=== PATIENT | male | born 1935 | race Caucasian/White ===

== ENCOUNTER 2017-04-02 12:54 | Emergency (ER) | payer MEDICARE, OTHER ==
[2017-04-02] MEDS ORDERED: Sodium Chloride 0.9% 10 ML Syringe FLUSH PRN (13:50)
[2017-04-02] MEDS ORDERED: Sodium Chloride 0.9% 1,000 ML IV ONE (13:53)
--- NOTE | 2017-04-02 14:30 | CT ---
Head CT Technique: Multiple axial sections through the brain were obtained. Intravenous contrast was not utilized. Comparison: Prior head CT exam of 05/08/13. Findings: Ventricles along with basal cisterns and sulci over the convexities are mildly prominent. Several old lacunar infarcts are noted within the basal ganglia. Minimal diminished density is noted within the periventricular white matter compatible with small vessel ischemic demyelination change. No other abnormal parenchymal densities are seen. No evidence of intracranial hemorrhage. No midline shift or mass effect is seen. Atherosclerotic calcification is seen within the carotid siphon. No acute calvarial abnormality is seen. Impression: 1. Mild senescent change. Nothing acute is appreciated on CT study of the brain. Diagnostic code #2
--- NOTE | 2017-04-02 14:32 | CT ---
CT paranasal sinuses Technique: Multiple axial sections through the paranasal sinuses were obtained. Reconstructed coronal and sagittal images were reviewed. Comparison: No prior CT sinus exam Findings: Mild mucosal thickening is seen within the maxillary and ethmoid sinuses. Mild mucosal thickening is seen within a portion of the right sphenoid sinus. Minimal nodularity is seen within the maxillary sinuses possibly due to small superimposed retention cysts. No air-fluid levels are seen. Mild joint space narrowing is noted within the temporomandibular joint on the right side. Previous sinus surgery is noted. Impression: 1. Mild areas of mucosal thickening within the maxillary, ethmoid and right-sided sphenoid sinus. Possible minimal superimposed retention cysts within the maxillary sinuses. No air-fluid levels are seen. 2. Previous sinus surgery. 3. Joint space narrowing noted within the right temporomandibular joint. Diagnostic code #3
--- NOTE | 2017-04-02 14:42 | CR ---
Chest: Portable view of the chest was obtained. Comparison: Prior chest x-ray 05/08/13. Slight thickening along the right minor fissure is seen. Lung markings are mildly increased which are believed to be chronic. No acute appearing infiltrates are seen. Heart size at the upper limits of normal. Tortuous thoracic aorta is seen. Bony structures are grossly intact. Stable nodule compatible with granuloma is seen within the left upper chest. Impression: 1. Chronic findings as noted above. Nothing acute is appreciated. Diagnostic code #2
[2017-04-02] MEDS ORDERED: Iopamidol 755 Mg/ML 100 ML Bottle IVPUSH ONE (15:04)
[2017-04-02] MEDS ORDERED: Diatrizoate Meglumine/Diatrizoate Sodium 37% 120 ML Bottle PO ONE (15:04)
[2017-04-02] MEDS ORDERED: Sodium Chloride 0.9% 10 ML Syringe FLUSH ONE (15:04)
[2017-04-02] MEDS ORDERED: Sodium Chloride 0.9% 100 ML IV SCH (15:15)
--- NOTE | 2017-04-02 15:33 | EDM.PDOC ---
ED HPI GENERAL MEDICAL PROBLEM - General Chief Complaint: Headache Stated Complaint: HEADACHE,LEFT SIDE PAIN Time Seen by Provider: 04/02/17 13:40 Source of Information: Reports: Patient History Limitations: Reports: No Limitations - History of Present Illness INITIAL COMMENTS - FREE TEXT/NARRATIVE: 81-year-old male presents for evaluation treatment of a headache and sinus pressure. Patient reports that he was diagnosed with a sinus infection on March 08. He states this all started with pain to his nasal bridge, headache and stuffy nose. He states that he was seen on March 16 at the [facility]. Instructed to take Tylenol. He states he did this for 3 days if symptoms worsen. He is then seen by the [facility] on the . He started on Augmentin and steroids. He reports they finish his course of Augmentin. He did not have any improvement. Again on the he presented to the [facility] and was started on a second course of Augmentin and given Mucinex. He also noted no improvement. Was seen on March 30 at the [facility]. He started on moxifloxacin. He has not had any imaging or lab studies done since this all started. Currently complaining of a headache and sinus pain. Patient reports early this morning he developed pain on the left lower abdomen. He states he is belching more than normal. He reports associated decreased appetite, nausea and fatigue. He states he had "a little bit of diarrhea ". No vomiting or fevers. Patient is a diabetic. Reports that his blood sugars have been running around the 120s. Headache Pain Score (Numeric/FACES): 10 - Related Data Allergies Allergy/AdvReac Type Severity Reaction Status Date / Time lisinopril Allergy Cannot Verified 04/28/15 20:48 Remember soap Allergy Itching Verified 04/28/15 20:48 Home Meds: Home Meds Aspirin [Halfprin] 81 mg PO DAILY 04/28/15 [History] Clopidogrel [Plavix] 75 mg PO DAILY 04/28/15 [History] Fish Oil/[place]-3 Fatty Acids [Fish Oil 1,000 MG] 1 gm PO DAILY 04/28/15 [History ] Folic Acid 400 mcg PO DAILY 04/28/15 [History] Hydrochlorothiazide 12.5 mg PO DAILY 04/28/15 [History] Instaflex 3 tab PO DAILY 04/28/15 [History] Insulin Aspart [NovoLOG] 8 units SQ TID 04/28/15 [History] Insulin Glarg,Human.Rec.Analog [Lantus] 20 units SQ DAILY 04/28/15 [History] Multivit-Min/FA/Lycopene/Lut [Centrum Silver Tablet] 1 tab PO DAILY 04/28/15 [ History] NIFEdipine [Nifedipine] 30 mg PO DAILY 04/28/15 [History] Nitroglycerin [Nitrostat] 0.4 mg SL ONCALL PRN 04/28/15 [History] metFORMIN [Glucophage] 500 mg PO DAILY 04/28/15 [History] Atenolol [Tenormin] 25 mg PO BID 04/02/17 [History] Losartan [Cozaar] 25 mg PO DAILY 04/02/17 [History] Montelukast [Singulair] 10 mg PO BEDTIME 04/02/17 [History] Moxifloxacin HCl [Avelox] 400 mg PO DAILY 04/02/17 [History] Tamsulosin [Flomax] 0.4 mg PO PCBREAKFAST 04/02/17 [History] Past Medical History HEENT History: Reports: Cataract, Impaired Vision Other HEENT History: cataracts removed Cardiovascular History: Reports: High Cholesterol, Hypertension, [place], Stents Endocrine/Metabolic History: Reports: Diabetes, Type II - Infectious Disease History Infectious Disease History: Reports: None - Past Surgical History HEENT Surgical History: Reports: Cataract Surgery GI Surgical History: Reports: Hernia Repair/Other Social & Family History - Family History Family Medical History: Noncontributory - Tobacco Use Smoking Status *Q: Never Smoker - Caffeine Use Caffeine Use: Reports: Coffee - Recreational Drug Use Recreational Drug Use: No ED ROS GENERAL - Review of Systems Review Of Systems: See Below Constitutional: Reports: Decreased Appetite. Denies: Fever HEENT: Reports: Sinus Problem. Denies: Ear Pain Respiratory: Denies: Shortness of Breath Cardiovascular: Denies: Chest Pain GI/Abdominal: Reports: Abdominal Pain (LLQ), Diarrhea ("little bit"), Nausea. Denies: Vomiting : Reports: Flank Pain (left). Denies: Dysuria Neurological: Reports: Headache - Physical Exam Exam: See Below Exam Limited By: No Limitations General Appearance: Alert, WD/WN, No Apparent Distress, Obese Eye Exam: Bilateral Eye: Normal Inspection Ears: Normal External Exam, Normal Canal, Normal TMs, Hearing Loss Nose: Normal Inspection, Nasal Tenderness Throat/Mouth: Normal Inspection, Normal Lips, Normal Oropharynx, Normal Voice, No Airway Compromise Respiratory/Chest: No Respiratory Distress, Lungs Clear, Normal Breath Sounds Cardiovascular: Normal Peripheral Pulses, Regular Rate, Rhythm, No Murmur GI/Abdominal: Normal Bowel Sounds, Soft, Tender (LLQ and left flank) Neuro Exam (Abbreviated): Alert, Oriented, Normal Cognition Psychiatric: Normal Affect, Normal Mood Skin Exam: Warm, Dry, Normal Color EKG INTERPRETATION EKG Date: 04/02/17 Time: 14:10 Rhythm: NSR Rate (Beats/Min): 63 [place]: Normal P-Wave: Present QRS: Normal ST-T: Normal QT: Normal EKG Interpretation Comments: NSR at 63 bpm. QT mildly prolonged. No acute changes. Reviewed by myself and Dr. Guerra Course - Vital Signs Last Recorded V/S: Last Vital Signs Temp 36.9 C 04/02/17 16:56 Pulse 89 04/02/17 16:56 Resp 14 04/02/17 16:56 BP 130/58 L 04/02/17 16:56 Pulse Ox 98 04/02/17 16:56 - Orders/Labs/Meds Labs: Laboratory Tests 04/02/17 04/02/17 04/02/17 Range/Units 13:54 13:54 13:54 WBC 13.85 H (4.23-9.07) K/mm3 RBC 4.48 L (4.63-6.08) M/mm3 Hgb 12.3 L (13.7-17.5) gm/L Hct 36.8 L (40.1-51.0) % MCV 82.1 (79.0-92.2) fl MCH 27.5 (25.7-32.2) pg MCHC 33.4 (32.2-35.5) g/dl RDW Std Deviation 41.9 (35.1-43.9) fL Plt Count 227 (163-337) K/mm3 MPV 9.1 L (9.4-12.3) fl Neutrophils % (Manual) 85 H (40-60) % Band Neutrophils % 0 (0-10) % Lymphocytes % (Manual) 8 L (20-40) % Atypical Lymphs % 0 % Monocytes % (Manual) 5 (2-10) % Eosinophils % (Manual) 1 (0.8-7.0) % Basophils % (Manual) 1 (0.2-1.2) Platelet Estimate Adequate RBC Morph Comment Normal Sodium 142 (136-145) mEq/L Potassium 3.7 (3.5-5.1) mEq/L Chloride 105 (98-107) mEq/L Carbon Dioxide 26 (21-32) mEq/L Anion Gap 14.7 (5-15) BUN 28 H (7-18) mg/dL Creatinine 1.4 H (0.7-1.3) mg/dL Est Cr Clr Drug Dosing 38.03 mL/min Estimated GFR (MDRD) 49 (>60) mL/min BUN/Creatinine Ratio 20.0 H (14-18) Glucose 117 H (83-115) mg/dL Lactic Acid (0.4-2.0) mmol/L Calcium 8.5 (8.5-10.1) mg/dL Total Bilirubin 0.6 (0.2-1.0) mg/dL GGT (15-85) U/L AST 43 H (15-37) U/L ALT 75 H (16-63) U/L Alkaline Phosphatase 433 H (46-116) U/L C-Reactive Protein 19.3 H* (<1.0) mg/dL NT-Pro-B Natriuret Pep 1741 H (0-450) pg/mL Total Protein 6.6 (6.4-8.2) g/dl Albumin 2.0 L (3.4-5.0) g/dl Globulin 4.6 gm/dL Albumin/Globulin Ratio 0.4 L (1-2) Lipase 83 (73-393) U/L Urine Color (Yellow) Urine Appearance (Clear) Urine pH (5.0-8.0) Ur Specific [place] (1.005-1.030) Urine Protein (Negative) Urine Glucose (UA) (Negative) Urine Ketones (Negative) Urine Occult Blood (Negative) Urine Nitrite (Negative) Urine Bilirubin (Negative) Urine Urobilinogen (0.2-1.0) Ur Leukocyte Esterase (Negative) Urine RBC (0-5) /hpf Urine WBC (0-5) /hpf Ur Epithelial Cells (0-5) /hpf Urine Bacteria (FEW) /hpf Urine Mucus (FEW) /hpf C.difficile [id number]-[id number] C. difficile Tox (PCR) 04/02/17 04/02/17 04/02/17 Range/Units 14:27 15:31 15:37 WBC (4.23-9.07) K/mm3 RBC (4.63-6.08) M/mm3 Hgb (13.7-17.5) gm/L Hct (40.1-51.0) % MCV (79.0-92.2) fl MCH (25.7-32.2) pg MCHC (32.2-35.5) g/dl RDW Std Deviation (35.1-43.9) fL Plt Count (163-337) K/mm3 MPV (9.4-12.3) fl Neutrophils % (Manual) (40-60) % Band Neutrophils % (0-10) % Lymphocytes % (Manual) (20-40) % Atypical Lymphs % % Monocytes % (Manual) (2-10) % Eosinophils % (Manual) (0.8-7.0) % Basophils % (Manual) (0.2-1.2) Platelet Estimate RBC Morph Comment Sodium (136-145) mEq/L Potassium (3.5-5.1) mEq/L Chloride (98-107) mEq/L Carbon Dioxide (21-32) mEq/L Anion Gap (5-15) BUN (7-18) mg/dL Creatinine (0.7-1.3) mg/dL Est Cr Clr Drug Dosing mL/min Estimated GFR (MDRD) (>60) mL/min BUN/Creatinine Ratio (14-18) Glucose (83-115) mg/dL Lactic Acid 1.1 (0.4-2.0) mmol/L Calcium (8.5-10.1) mg/dL Total Bilirubin (0.2-1.0) mg/dL GGT (15-85) U/L AST (15-37) U/L ALT (16-63) U/L Alkaline Phosphatase (46-116) U/L C-Reactive Protein (<1.0) mg/dL NT-Pro-B Natriuret Pep (0-450) pg/mL Total Protein (6.4-8.2) g/dl Albumin (3.4-5.0) g/dl Globulin gm/dL Albumin/Globulin Ratio (1-2) Lipase (73-393) U/L Urine Color Yellow (Yellow) Urine Appearance Clear (Clear) Urine pH 6.0 (5.0-8.0) Ur Specific [place] 1.020 (1.005-1.030) Urine Protein Negative (Negative) Urine Glucose (UA) Negative (Negative) Urine Ketones Negative (Negative) Urine Occult Blood Negative (Negative) Urine Nitrite Negative (Negative) Urine Bilirubin Negative (Negative) Urine Urobilinogen 4.0 H (0.2-1.0) Ur Leukocyte Esterase Negative (Negative) Urine RBC 0-5 (0-5) /hpf Urine WBC 0-5 (0-5) /hpf Ur Epithelial Cells 0-5 (0-5) /hpf Urine Bacteria Occasional (FEW) /hpf Urine Mucus Not seen (FEW) /hpf C.difficile [id number]-NAP1-B1 Presumptive negative C. difficile Tox (PCR) Negative 04/02/17 Range/Units 15:37 WBC (4.23-9.07) K/mm3 RBC (4.63-6.08) M/mm3 Hgb (13.7-17.5) gm/L Hct (40.1-51.0) % MCV (79.0-92.2) fl MCH (25.7-32.2) pg MCHC (32.2-35.5) g/dl RDW Std Deviation (35.1-43.9) fL Plt Count (163-337) K/mm3 MPV (9.4-12.3) fl Neutrophils % (Manual) (40-60) % Band Neutrophils % (0-10) % Lymphocytes % (Manual) (20-40) % Atypical Lymphs % % Monocytes % (Manual) (2-10) % Eosinophils % (Manual) (0.8-7.0) % Basophils % (Manual) (0.2-1.2) Platelet Estimate RBC Morph Comment Sodium (136-145) mEq/L Potassium (3.5-5.1) mEq/L Chloride (98-107) mEq/L Carbon Dioxide (21-32) mEq/L Anion Gap (5-15) BUN (7-18) mg/dL Creatinine (0.7-1.3) mg/dL Est Cr Clr Drug Dosing mL/min Estimated GFR (MDRD) (>60) mL/min BUN/Creatinine Ratio (14-18) Glucose (83-115) mg/dL Lactic Acid (0.4-2.0) mmol/L Calcium (8.5-10.1) mg/dL Total Bilirubin (0.2-1.0) mg/dL GGT 318 H (15-85) U/L AST (15-37) U/L ALT (16-63) U/L Alkaline Phosphatase (46-116) U/L C-Reactive Protein (<1.0) mg/dL NT-Pro-B Natriuret Pep (0-450) pg/mL Total Protein (6.4-8.2) g/dl Albumin (3.4-5.0) g/dl Globulin gm/dL Albumin/Globulin Ratio (1-2) Lipase (73-393) U/L Urine Color (Yellow) Urine Appearance (Clear) Urine pH (5.0-8.0) Ur Specific [place] (1.005-1.030) Urine Protein (Negative) Urine Glucose (UA) (Negative) Urine Ketones (Negative) Urine Occult Blood (Negative) Urine Nitrite (Negative) Urine Bilirubin (Negative) Urine Urobilinogen (0.2-1.0) Ur Leukocyte Esterase (Negative) Urine RBC (0-5) /hpf Urine WBC (0-5) /hpf Ur Epithelial Cells (0-5) /hpf Urine Bacteria (FEW) /hpf Urine Mucus (FEW) /hpf C.difficile 027-NAP1-B1 C. difficile Tox (PCR) Meds: Medications Discontinued Medications Generic Name Dose Route Start Last Admin Trade Name Freq PRN Reason Stop Dose Admin Diatrizoate Meglum/Diatrizoate Sod 90 ml 04/02/17 15:04 04/02/17 15:17 Gastrografin 37% PO 04/02/17 15:05 90 ml ONETIME ONE Administration Sodium Chloride 1,000 mls @ 100 mls/hr 04/02/17 13:53 04/02/17 14:14 Normal Saline IV 04/02/17 23:52 100 mls/hr ONETIME ONE Administration Sodium Chloride 100 mls @ 60 mls/hr 04/02/17 15:15 04/02/17 15:18 Normal Saline IV 60 mls/hr ASDIRECTED DARIUSZ Administration Iopamidol 100 ml 04/02/17 15:04 04/02/17 15:17 Isovue-370 (76%) IVPUSH 04/02/17 15:05 100 ml ONETIME ONE Administration Sodium Chloride 10 ml 04/02/17 13:50 04/02/17 14:15 Saline Flush FLUSH 10 ml ASDIRECTED PRN Administration Keep Vein Open Sodium Chloride 10 ml 04/02/17 15:04 04/02/17 15:18 Saline Flush FLUSH 04/02/17 15:05 10 ml ONETIME ONE Administration - Radiology Interpretation Free Text/Narrative:: Head CT Technique: Multiple axial sections through the brain were obtained. Intravenous contrast was not utilized. Comparison: Prior head CT exam of 05/08/13. Findings: Ventricles along with basal cisterns and sulci over the convexities are mildly prominent. Several old lacunar infarcts are noted within the basal ganglia. Minimal diminished density is noted within the periventricular white matter compatible with small vessel ischemic demyelination change. No other abnormal parenchymal densities are seen. No evidence of intracranial hemorrhage. No midline shift or mass effect is seen. Atherosclerotic calcification is seen within the carotid siphon. No acute calvarial abnormality is seen. Impression: 1. Mild senescent change. Nothing acute is appreciated on CT study of the brain. CT paranasal sinuses Technique: Multiple axial sections through the paranasal sinuses were obtained. Reconstructed coronal and sagittal images were reviewed. Comparison: No prior CT sinus exam Findings: Mild mucosal thickening is seen within the maxillary and ethmoid sinuses. Mild mucosal thickening is seen within a portion of the right sphenoid sinus. Minimal nodularity is seen within the maxillary sinuses possibly due to small superimposed retention cysts. No air-fluid levels are seen. Mild joint space narrowing is noted within the temporomandibular joint on the right side. Previous sinus surgery is noted. Impression: 1. Mild areas of mucosal thickening within the maxillary, ethmoid and right- sided sphenoid sinus. Possible minimal superimposed retention cysts within the maxillary sinuses. No air-fluid levels are seen. 2. Previous sinus surgery. 3. Joint space narrowing noted within the right temporomandibular joint. Chest: Portable view of the chest was obtained. Comparison: Prior chest x-ray 05/08/13. Slight thickening along the right minor fissure is seen. Lung markings are mildly increased which are believed to be chronic. No acute appearing infiltrates are seen. Heart size at the upper limits of normal. Tortuous thoracic aorta is seen. Bony structures are grossly intact. Stable nodule compatible with granuloma is seen within the left upper chest. Impression: 1. Chronic findings as noted above. Nothing acute is appreciated. CT abdomen and pelvis Technique: Multiple axial sections were obtained from above the dome of the diaphragm inferiorly through the pubic symphysis. Intravenous and oral contrast was utilized. Delayed images were obtained through the bladder. Comparison: Prior CT exam of 10/22/08 is available. Findings: Minimal pleural effusions are seen on both sides with mild compressive type atelectasis. Heart is mildly enlarged. Liver shows no focal parenchymal abnormality. Spleen appears appears mildly prominent in size at 14.6 cm which is fairly stable from prior exam. Liver shows a minimal low density lesion within the lower portion which is stable from previous exam and therefore is felt to be incidental. Cyst is noted off the right kidney measuring 2.6 cm. Extrarenal pelvis noted on both sides. No ureteral dilatation is seen. Delayed images shows contrast within the distal ureters and within the bladder. Adrenal glands show no nodule. Gallbladder shows no calcified gallstones. Pancreas appears within normal limits. Aorta shows diffuse atherosclerotic change which continues into the iliac vessels without aneurysmal dilatation. No retroperitoneal adenopathy or mesenteric abnormalities are seen. Diverticuli are seen within the sigmoid colon without findings of diverticulitis. No free fluid or inflammatory change is seen. Prostate gland is mildly enlarged. Appendix is seen which appears within normal limits. Bone window settings were reviewed which appear within normal limits for the patient's age. Impression: 1. Small bilateral pleural effusions with minimal compressive atelectasis. 2. Other incidental findings as noted above. Nothing acute is appreciated on CT study of the abdomen and pelvis. - Re-Assessments/Exams Free Text/Narrative Re-Assessment/Exam: 04/02/17 16:38 Patient was offered pain medication throughout his ER stay but declined. Case discussed with Dr. Fermin. Recommended ENT for chronic sinusitis. [place] elevated liver enzymes were likely from antibiotics or possibly undiagnosed malignancy. Recommended follow-up with PCP for further work-up. I was able to obtain recent labs from [place] (end of January labs). Liver enzymes were within normal limits at that time. WBC slightly elevated about normal at 10. I discussed the labs, ekg and imaging with the patient and his . I will have him follow-up with ENT. He should also follow-up with his PCP. HE is instructed to return to the ER immediately if his symptoms change or worsen. Discharge instructions as documented. Departure - Departure Time of Disposition: 16:40 Disposition: Home, Self-Care 01 Condition: Fair Clinical Impression: Sinusitis, Constipation, Transaminitis - Discharge Information Instructions: Constipation, Adult, [id number], Sinusitis, Adult, [id number] Referrals: Benji Perrin MD [Primary Care Provider] - Rian Cruz MD [Ordering Only Provider] - Forms: ED Department Discharge Additional Instructions: Continue on your antibiotic. [id number] Tylenol as needed for pain relief. Recommended starting MiraLAX daily. Recommend starting a probiotic with your antibiotic. Take this daily. These are available [id number]. Follow up with ear, nose and throat. Recommend Dr. Cruz. Call [phone] to schedule with him. Follow-up with Dr. Valdez within 1 week for recheck of your symptoms. Please return to the ER if your symptoms change or worsen. Particularly we would like to see you for fevers, chills, nausea, vomiting or any other concerning symptom.
--- NOTE | 2017-04-02 15:50 | CT ---
CT abdomen and pelvis Technique: Multiple axial sections were obtained from above the dome of the diaphragm inferiorly through the pubic symphysis. Intravenous and oral contrast was utilized. Delayed images were obtained through the bladder. Comparison: Prior CT exam of 10/22/08 is available. Findings: Minimal pleural effusions are seen on both sides with mild compressive type atelectasis. Heart is mildly enlarged. Liver shows no focal parenchymal abnormality. Spleen appears appears mildly prominent in size at 14.6 cm which is fairly stable from prior exam. Liver shows a minimal low density lesion within the lower portion which is stable from previous exam and therefore is felt to be incidental. Cyst is noted off the right kidney measuring 2.6 cm. Extrarenal pelvis noted on both sides. No ureteral dilatation is seen. Delayed images shows contrast within the distal ureters and within the bladder. Adrenal glands show no nodule. Gallbladder shows no calcified gallstones. Pancreas appears within normal limits. Aorta shows diffuse atherosclerotic change which continues into the iliac vessels without aneurysmal dilatation. No retroperitoneal adenopathy or mesenteric abnormalities are seen. Diverticuli are seen within the sigmoid colon without findings of diverticulitis. No free fluid or inflammatory change is seen. Prostate gland is mildly enlarged. Appendix is seen which appears within normal limits. Bone window settings were reviewed which appear within normal limits for the patient's age. Impression: 1. Small bilateral pleural effusions with minimal compressive atelectasis. 2. Other incidental findings as noted above. Nothing acute is appreciated on CT study of the abdomen and pelvis. Diagnostic code #3
[2017-04-02 17:02] VITALS: BP 130/58
== END 2017-04-02 16:52 | disposition home or self-care (01) ==
LOC: EDBD → JD.ED 12:54
DX: J32.9 Chronic sinusitis, unspecified (principal); K59.00 Constipation, unspecified; I10 Essential (primary) hypertension; R74.0 Nonspecific elevation of levels of transaminase and lactic acid dehydrogenase [LDH]; Z88.8 Allergy status to other drugs, medicaments and biological substances
CPT/HCPCS: 36415; 70450; 70486; 71010; 74177; 80053; 81001; 82977; 83605; 83690; 83880; 85025; 86140; 87040; 87493; 93005; 96360; 96361; 99285; J7030; J7040; J7050; Q9967; 93010; 99284

== ENCOUNTER 2017-05-04 09:55 | Day surgery (SDC) | payer MEDICARE, OTHER ==
[~2017-05-04 09:55] MED LIST: Lactated Ringers 1,000 ML IV SCH; Lidocaine 1%/Sod Bicarbonate in NS 8.4% 1 ML Syringe IV PRN; Sodium Chloride 0.9% 10 ML Syringe FLUSH PRN
[2017-05-04] MEDS ORDERED: Bupivacaine 0.5%/EPINEPHrine 1:200,000 50 ML MDV ONE (10:13)
[2017-05-04] MEDS ORDERED: Lidocaine 1% with EPINEPHrine 1:100,000 20 ML MDV ONE (10:13)
[2017-05-04] MEDS ORDERED: Midazolam 1 MG/ML 2 ML SDV ONE (10:34)
[2017-05-04] MEDS ORDERED: fentaNYL 100 MCG/2 ML SDV ONE (10:34)
[2017-05-04] MEDS ORDERED: Propofol 200 MG/20 ML SDV ONE (10:34)
[2017-05-04] MEDS ORDERED: Ketamine 500 mg/10 ML MDV ONE (10:34)
[2017-05-04] MEDS ORDERED: Lidocaine 1% 4 ML ONE (10:35)
--- NOTE | 2017-05-04 10:53 | PCM.PREANE ---
Preanesthetic Assessment - Anesthesia/Transfusion/Family Hx Anesthesia History: Prior Anesthesia Without Reaction Family History of Anesthesia Reaction: No Transfusion History: No Prior Transfusion(s) - Review of Systems General: Weakness, Fatigue, Malaise, Appetite (Decreased appetite, 30 lb weight loss over the last month. ) Pulmonary: No Symptoms Cardiovascular: No Symptoms, Other (Is not very active due to his terrible headaches, denies chest pain since his last cardiac stent in 2005.) Gastrointestinal: Decreased Appetite Neurological: Confusion (His states he is confused in the monings and then improves throughout the day. ), Headache (Constant headache), Difficulty Walking (Uses a cane to ambulate) Other: Reports: Easy Bruising, Diabetes - Physical Assessment NPO Status Date: 05/04/17 NPO Status Time: 08:00 (Sip of water with his medications) Pulse: 66 O2 Sat by Pulse Oximetry: 95 Respiratory Rate: 17 Blood Pressure: 140/59 Temperature: 36.0 C Weight: 84 kg ASA Class: 3 Mental Status: Alert & Oriented x3 Airway Class: Mallampati = 1 Dentition: Reports: Dentures Thyro-Mental Finger Breadths: 3 Mouth Opening Finger Breadths: 3 ROM/Head Extension: Full Lungs: Clear to Auscultation, Normal Respiratory Effort Cardiovascular: Regular Rate, Regular Rhythm - Lab Values: Reviewed - Imaging/EKG Impressions: Reviewed. Patient has cardiac stents. Last stent was in 2005 no episodes of chest pain since that time. - Allergies Allergies/Adverse Reactions: Allergies Allergy/AdvReac Type Severity Reaction Status Date / Time lisinopril Allergy Cannot Verified 05/04/17 10:55 Remember soap Allergy Itching Verified 05/04/17 10:55 - Anesthesia Plan Beta Jonas: Atenolol Med Last Dose Date: 05/03/17 Med Last Dose Time: 17:30 - Acknowledgements Anesthesia Type Planned: MAC Pt an Appropriate Candidate for the Planned Anesthesia: Yes Alternatives and Risks of Anesthesia Discussed w Pt/Guardian: Yes Pt/Guardian Understands and Agrees with Anesthesia Plan: Yes Additional Comments: Rheumatology consult for Sunday. Patient and his are very concerned with his declining health. He appears very lethargic in bed, very hard of hearing, they both have no further questions at this time. Patient is taking his plavix daily, Dr. Suárez is aware and wishes to proceed. PreAnesthesia Questionnaire HEENT History: Reports: Cataract, Impaired Vision Other HEENT History: cataracts removed Cardiovascular History: Reports: High Cholesterol, Hypertension, [place], Stents Endocrine/Metabolic History: Reports: Diabetes, Type II - Infectious Disease History Infectious Disease History: Reports: None - Past Surgical History HEENT Surgical History: Reports: Cataract Surgery GI Surgical History: Reports: Hernia Repair/Other - SUBSTANCE USE Smoking Status *Q: Never Smoker Recreational Drug Use History: No - HOME MEDS Home Medications: Home Meds Aspirin [Halfprin] 81 mg PO DAILY 04/28/15 [History] Clopidogrel [Plavix] 75 mg PO DAILY 04/28/15 [History] Fish Oil/[place]-3 Fatty Acids [Fish Oil 1,000 MG] 1 gm PO DAILY 04/28/15 [History ] Folic Acid 400 mcg PO DAILY 04/28/15 [History] Hydrochlorothiazide 12.5 mg PO DAILY 04/28/15 [History] Instaflex 3 tab PO DAILY 04/28/15 [History] Insulin Aspart [NovoLOG] 8 units SQ TID 04/28/15 [History] Insulin Glarg,Human.Rec.Analog [Lantus] 20 units SQ DAILY 04/28/15 [History] Multivit-Min/FA/Lycopene/Lut [Centrum Silver Tablet] 1 tab PO DAILY 04/28/15 [ History] NIFEdipine [Nifedipine] 30 mg PO DAILY 04/28/15 [History] Nitroglycerin [Nitrostat] 0.4 mg SL ONCALL PRN 04/28/15 [History] metFORMIN [Glucophage] 500 mg PO DAILY 04/28/15 [History] Atenolol [Tenormin] 25 mg PO BID 04/02/17 [History] Losartan [Cozaar] 25 mg PO DAILY 04/02/17 [History] Montelukast [Singulair] 10 mg PO BEDTIME 04/02/17 [History] Tamsulosin [Flomax] 0.4 mg PO PCBREAKFAST 04/02/17 [History] - CURRENT (IN HOUSE) MEDS Current Meds: Current Medications Lactated Ringer's (Ringers, Lactated) 1,000 mls @ 125 mls/hr IV ASDIRECTED DARIUSZ Lidocaine/Sodium Bicarbonate (Buffered Lidocaine 1% In Ns 8.4%) 0.25 ml IV ONETIME PRN PRN Reason: Prior to IV Start Sodium Chloride (Saline Flush) 10 ml FLUSH ASDIRECTED PRN PRN Reason: Keep Vein Open Discontinued Medications Bupivacaine HCl/Epinephrine Bitart (Marcaine 0.5%/Epinephrine 1:200,000) Confirm Administered Dose 50 ml .ROUTE .STK-MED ONE Stop: 05/04/17 10:14 Fentanyl (Sublimaze) Confirm Administered Dose 100 mcg .ROUTE .STK-MED ONE Stop: 05/04/17 10:35 Lidocaine HCl (Xylocaine-Mpf 1%) Confirm Administered Dose 4 mls @ as directed .ROUTE .STK-MED ONE Stop: 05/04/17 10:36 Ketamine HCl (Ketalar) Confirm Administered Dose 500 mg .ROUTE .STK-MED ONE Stop: 05/04/17 10:35 Lidocaine/Epinephrine (Xylocaine 1% With Epinephrine 1:100,000) Confirm Administered Dose 20 ml .ROUTE .STK-MED ONE Stop: 05/04/17 10:14 Midazolam HCl (Versed 1 Mg/Ml) Confirm Administered Dose 2 mg .ROUTE .STK-MED ONE Stop: 05/04/17 10:35 Propofol (Diprivan 20 Ml) Confirm Administered Dose 400 mg .ROUTE .STK-MED ONE Stop: 05/04/17 10:35
[2017-05-04] MEDS ORDERED: Lidocaine 1% 50 ML MDV ONE (12:59)
[2017-05-04] MEDS ORDERED: Mupirocin Oint 22 GM Tube ONE (13:27)
--- NOTE | 2017-05-04 13:49 | PCM.OPNOTE ---
- General Post-Op/Procedure Note Date of Surgery/Procedure: 05/04/17 Operative Procedure(s): rt temporal artery bx Pre Op Diagnosis: giant cell arteritis Post-Op Diagnosis: Same Anesthesia Technique: MAC Primary Surgeon: Brett Suárez EBL in mLs: 2 Complications: None Condition: Good
--- NOTE | 2017-05-04 13:55 | PCM48HPAN ---
Post Anesthesia Note - EVALUATION WITHIN 48HRS OF ANESTHETIC Vital Signs in Normal Range: Yes Patient Participated in Evaluation: Yes Respiratory Function Stable: Yes Airway Patent: Yes Cardiovascular Function Stable: Yes Hydration Status Stable: Yes Pain Control Satisfactory: Yes Nausea and Vomiting Control Satisfactory: Yes Mental Status Recovered: Yes
[2017-05-04 14:46] VITALS: BP 117/59
--- NOTE | 2017-05-07 07:47 | OR ---
wDATE OF OPERATION: 05/04/2017 SURGEON: Brett Suárez MD PREOPERATIVE DIAGNOSIS: Giant-cell arteritis. POSTOPERATIVE DIAGNOSIS: Giant-cell arteritis. OPERATION PERFORMED: Right temporal artery biopsy. ANESTHESIA: The procedure was done under IV sedation, 1% Xylocaine. DESCRIPTION OF PROCEDURE: The patient was taken to the operating room, placed in the supine position, connected to monitoring equipment, and given IV sedation. The sideburns were then clipped and prepped with DuraPrep, draped off in a sterile fashion. Xylocaine 1% was infiltrated in the skin over the temporal area. An incision was made in vertical fashion, carried down to the temporal artery, which was identified with the help of a Doppler. This was then mobilized, proximal and distal end of the segment of artery was clamped, and then segment of the artery was removed and these were tied with 3-0 Vicryl suture. Bleeding points were controlled with clamping and suture ligature of 3-0 Vicryl suture. Once excellent hemostasis was obtained, the subcuticular tissue was closed with interrupted 3-0 Vicryl suture and the skin with subdermal 4-0 Dexon suture. Steri-Strips and sterile dressing placed. The patient tolerated the procedure. Specimen sent to pathology in a labeled container. Estimated blood loss about 1 to 2 mL. The patient will be followed up in the clinic. ESTIMATED BLOOD LOSS: MMODAL /[id number]
== END 2017-05-04 14:50 | disposition home or self-care (01) ==
LOC: JD.SDS 09:55 → EDBD 09:55 → JD.SDS 14:50
PROVIDERS: ATTEND Surgery
DX: M31.6 Other giant cell arteritis (principal); I25.10 Atherosclerotic heart disease of native coronary artery without angina pectoris; E11.9 Type 2 diabetes mellitus without complications; I10 Essential (primary) hypertension; E78.5 Hyperlipidemia, unspecified; E66.9 Obesity, unspecified; E78.1 Pure hyperglyceridemia; Z95.5 Presence of coronary angioplasty implant and graft; Z79.84 Long term (current) use of oral hypoglycemic drugs; Z79.82 Long term (current) use of aspirin; Z79.899 Other long term (current) drug therapy; Z68.29 Body mass index [BMI] 29.0-29.9, adult
CPT/HCPCS: 37609; 82962; A9270; J3010; J7120; 00352; 88305; J2001; J2250; J2704

== ENCOUNTER 2018-07-22 07:08 | Day surgery (SDC) | payer MEDICARE, OTHER ==
[~2018-07-22 07:08] MED LIST changes: +Lidocaine 1% 4 ML ONE; +Lidocaine 1%/Sod Bicarbonate in NS 8.4% 1 ML Syringe IDERM PRN; -Lidocaine 1%/Sod Bicarbonate in NS 8.4% 1 ML Syringe IV PRN; +Propofol 200 MG/20 ML SDV ONE; +fentaNYL 100 MCG/2 ML SDV ONE
--- NOTE | 2018-07-22 07:50 | PCM.PREANE ---
Preanesthetic Assessment - Anesthesia/Transfusion/Family Hx Anesthesia History: Prior Anesthesia Without Reaction Family History of Anesthesia Reaction: No Transfusion History: No Prior Transfusion(s) - Review of Systems General: Fatigue, Other (3) Pulmonary: Shortness of Breath (gets SOB with flight of stairs), Other (s/p bronchitis with antibx, ) Cardiovascular: Other (plavix stopped at 07/16/18, hx of stents, HTN, high cholesterol) Gastrointestinal: No Symptoms Neurological: Other (back pain) Other: Reports: Diabetes (am glucose 119) - Physical Assessment NPO Status Date: 07/21/18 NPO Status Time: 21:00 Pulse: 67 O2 Sat by Pulse Oximetry: 93 Blood Pressure: 145/57 Weight: 101 kg ASA Class: 3 Mental Status: Alert & Oriented x3 Airway Class: Mallampati = 2 Dentition: Reports: Normal Dentition, Edentulous Thyro-Mental Finger Breadths: 3 Mouth Opening Finger Breadths: 3 ROM/Head Extension: Full Lungs: Clear to Auscultation, Normal Respiratory Effort Cardiovascular: Regular Rate, Regular Rhythm - Allergies Allergies/Adverse Reactions: Allergies Allergy/AdvReac Type Severity Reaction Status Date / Time lisinopril Allergy Cannot Verified 07/19/18 09:29 Remember soap Allergy Sneezing Verified 07/19/18 09:29 - Blood Blood Available: No Product(s) Available: None - Anesthesia Plan Pre-Op Medication Ordered: None Beta Jonas: Metoprolol Med Last Dose Date: 07/20/18 Med Last Dose Time: 18:00 - Acknowledgements Anesthesia Type Planned: MAC Pt an Appropriate Candidate for the Planned Anesthesia: Yes Alternatives and Risks of Anesthesia Discussed w Pt/Guardian: Yes Pt/Guardian Understands and Agrees with Anesthesia Plan: Yes PreAnesthesia Questionnaire HEENT History: Reports: Cataract, Impaired Vision Other HEENT History: Patient has dentures Cardiovascular History: Reports: CAD, High Cholesterol, Hypertension, [place], Stents Other Cardiovascular History: Chest Pain Respiratory History: Reports: Other (See Below) Other Respiratory History: Reactive Airway Disease, Bronchitis Gastrointestinal History: Reports: Hemorrhoids Other Gastrointestinal History: Positive FIT test Other Genitourinary History: Prostate hypertrophy Musculoskeletal History: Reports: Amputation Other Musculoskeletal History: 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, left hip pain, right hand joint cyst Neurological History: Reports: Headaches, Chronic Psychiatric History: Reports: None Endocrine/Metabolic History: Reports: Diabetes, Type II, Obesity/BMI 30+ Other Endocrine/Metabolic History: Fatigue Hematologic History: Reports: Anemia, Folic Acid Immunologic History: Reports: None Oncologic (Cancer) History: Reports: None - Infectious Disease History Infectious Disease History: Reports: None - Past Surgical History HEENT Surgical History: Reports: Cataract Surgery Cardiovascular Surgical History: Reports: Coronary Artery Stent Respiratory Surgical History: Reports: None GI Surgical History: Reports: Colonoscopy, Hernia Repair/Other Male Surgical History: Reports: None Endocrine Surgical History: Reports: None Neurological Surgical History: Reports: None Musculoskeletal Surgical History: Reports: None Oncologic Surgical History: Reports: None Dermatological Surgical History: Reports: Other (See Below) - SUBSTANCE USE Smoking Status *Q: Former Smoker Tobacco Use Within Last Twelve Months: Snuff/Dip Second Hand Smoke Exposure: No Recreational Drug Use History: No - HOME MEDS Home Medications: Home Meds Aspirin [Halfprin] 162 mg PO DAILY 04/28/15 [History] Clopidogrel [Plavix] 75 mg PO DAILY 04/28/15 [History] Fish Oil/[place]-3 Fatty Acids [Fish Oil 1,000 MG] 1,000 mg PO DAILY 04/28/15 [ History] Folic Acid 400 mcg PO DAILY 04/28/15 [History] Hydrochlorothiazide 12.5 mg PO DAILY 04/28/15 [History] Insulin Aspart [NovoLOG] 8 units SQ BID 04/28/15 [History] Insulin Glarg,Human.Rec.Analog [Lantus] 20 units SQ QAM 04/28/15 [History] Multivit-Min/FA/Lycopene/Lut [Centrum Silver Tablet] 1 tab PO DAILY 04/28/15 [ History] NIFEdipine [Nifedipine] 30 mg PO DAILY 04/28/15 [History] Nitroglycerin [Nitrostat] 0.4 mg SL ASDIRECTED PRN 04/28/15 [History] Atenolol [Tenormin] 25 mg PO QPM 04/02/17 [History] Tamsulosin [Flomax] 0.4 mg PO DAILY 04/02/17 [History] Budesonide/Formoterol [Symbicort 160-4.5 MCG] 1 puff INH BID 07/19/18 [History] Calcium Carbonate/Vitamin D3 [Caltrate-600 with Vit D Tab] 1 tab PO BID [History] Ferrous Sulfate [Iron] 325 mg PO BID 07/19/18 [History] Losartan [Cozaar] 25 mg PO DAILY 07/19/18 [History] Selenium Sulfide/Aloe Vera [[place] Blue Moist 1% Shampoo] 1 applic TP ASDIRECTED PRN 07/19/18 [History] Tocilizumab [Actemra] 162 mg SQ FR 07/19/18 [History] atorvaSTATin Calcium [Atorvastatin Calcium] 40 mg PO BEDTIME 07/19/18 [History] metFORMIN [Glucophage] 500 mg PO BEDTIME 07/19/18 [History] - CURRENT (IN HOUSE) MEDS Current Meds: Current Medications Lactated Ringer's (Ringers, Lactated) 1,000 mls @ 125 mls/hr IV ASDIRECTED DARIUSZ Stop: 07/22/18 23:00 Lidocaine/Sodium Bicarbonate (Buffered Lidocaine 1% In Ns 8.4%) 0.25 ml IDERM ONETIME PRN PRN Reason: Prior to IV Start Stop: 07/22/18 18:00 Sodium Chloride (Saline Flush) 10 ml FLUSH ASDIRECTED PRN PRN Reason: Keep Vein Open Stop: 07/22/18 18:00 Discontinued Medications Fentanyl (Sublimaze) Confirm Administered Dose 100 mcg .ROUTE .STK-MED ONE Stop: 07/22/18 06:23 Lidocaine HCl (Xylocaine-Mpf 1%) Confirm Administered Dose 4 mls @ as directed .ROUTE .STK-MED ONE Stop: 07/22/18 06:23 Propofol (Diprivan 20 Ml) Confirm Administered Dose 200 mg .ROUTE .STK-MED ONE Stop: 07/22/18 06:23
[2018-07-22] MEDS ORDERED: Metoprolol Tartrate 5 MG/5 ML SDV IVPUSH SCH (08:45)
[2018-07-22] MEDS ORDERED: Propofol 200 MG/20 ML SDV ONE (09:35)
[2018-07-22] MEDS ORDERED: Lactated Ringers 1,000 ML ONE (09:59)
--- NOTE | 2018-07-22 10:05 | PCM.OPNOTE ---
- General Post-Op/Procedure Note Date of Surgery/Procedure: 07/22/18 Operative Procedure(s): EGD and colonoscopy with polypectomy X 3 Post-Op Diagnosis: Same Anesthesia Technique: MAC Primary Surgeon: Brett Suárez EBL in mLs: 0 Complications: None Condition: Good
--- NOTE | 2018-07-22 10:06 | PCM48HPAN ---
Post Anesthesia Note - EVALUATION WITHIN 48HRS OF ANESTHETIC Vital Signs in Normal Range: Yes Patient Participated in Evaluation: Yes Respiratory Function Stable: Yes Airway Patent: Yes Cardiovascular Function Stable: Yes Hydration Status Stable: Yes Pain Control Satisfactory: Yes Nausea and Vomiting Control Satisfactory: Yes Mental Status Recovered: Yes Pulse Rate: 64 SaO2: 91 Resp Rate: 20 Temperature: 98.6 F Blood Pressure: 94/52
[2018-07-22 11:00] VITALS: BP 102/65
--- NOTE | 2018-07-23 06:33 | OR ---
DATE OF OPERATION: 07/22/2018 SURGEON: Brett Suárez MD PREOPERATIVE DIAGNOSIS: Positive FIT test, drop in hemoglobin. POSTOPERATIVE DIAGNOSIS: Positive FIT test, drop in hemoglobin. OPERATION PERFORMED: Colonoscopy to cecum with polypectomy x3. FINDINGS: A diminutive polyp in the cecum, at the ileocecal valve, and in the proximal ascending colon. These were each removed completely with cold biopsy forceps. 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 Internal hemorrhoids were noted. There was no large tumor, masses, or ulcerations and only 1 diverticulum was noted that was in the descending colon. ANESTHESIA: Done under IV sedation. DESCRIPTION OF PROCEDURE: The patient having been connected to monitoring equipment and given IV sedation for upper GI endoscopy, this was continued for colonoscopy. The patient was placed in left lateral position. Perianal area was inspected and was normal. Rectal exam showed good sphincter tone. A video Olympus colonoscope was then introduced into the rectum and threaded up without problem to the cecum, where the appendicular orifice was noted. Off to the side of the appendicular orifice snf between the ileocecal valve was a small angiodysplasia. There was no bleeding. A small diminutive polyp was noted just below the appendicular orifice. This was removed by cold biopsy forceps and sent to pathology. Another polyp was noted at the ileocecal valve and this was removed with cold biopsy forceps and sent to pathology. A third diminutive polyp was noted in the ascending colon. This was also removed by cold biopsy forceps and sent to pathology. Prep was excellent. [place] Cleansing Score grade B throughout the colon. The scope was then slowly withdrawn showing the cecum, ascending colon, transverse colon, descending colon, sigmoid colon, and rectum. Retroflexed view demonstrated hemorrhoids. The patient tolerated the procedure, sent to recovery room in stable condition. Specimen sent to pathology in a labeled container. The patient will be followed up in the clinic. ESTIMATED BLOOD LOSS: MMODAL /[id number]
--- NOTE | 2018-07-23 06:33 | OR ---
DATE OF OPERATION: 07/22/2018 SURGEON: Brett Suárez MD PREOPERATIVE DIAGNOSIS: Positive FIT test, drop in hemoglobin. POSTOPERATIVE DIAGNOSIS: Positive FIT test, drop in hemoglobin. OPERATION PERFORMED: Esophagogastroduodenoscopy. FINDINGS: Normal second portion of the duodenum, duodenal bulb, and pyloric channel. Antrum, body, and cardia of the stomach were unremarkable. J-maneuver shows mild incompetence of the hiatus. GE junction located at 40 cm, free of any acute disease. The rest of the esophagus was viewed as the scope withdrawn and unremarkable. ANESTHESIA: Done under IV sedation. Appearance is normal. DESCRIPTION OF PROCEDURE: The patient was taken to the endoscopy room, placed in supine position, connected to monitoring equipment, given IV sedation. A bite block was inserted and the patient placed in the left lateral position. A video Olympus gastroscope was placed in the posterior oropharynx under direct vision, threaded past the cricopharyngeus, down the esophagus, into the stomach. It was advanced through the pylorus to the second portion of the duodenum and it was then slowly withdrawn showing the normal second portion of the duodenum, duodenal bulb, and pyloric channel. Antrum, body, and cardia of the stomach were viewed. J- maneuver was performed showing the fundus in the hiatus, which showed some incompetence. No pathology was seen. The scope was then withdrawn to the GE junction located at 40 cm. It was unremarkable and no acute disease was seen. Rest of the esophagus viewed as the scope withdrawn was normal. The patient tolerated the procedure and there were no biopsies taken. IV sedation will be continued for colonoscopy. ESTIMATED BLOOD LOSS: MMODAL /[id number]
== END 2018-07-22 10:58 | disposition home or self-care (01) ==
LOC: JD.SDS 07:08 → EDBD 08:00 → JD.SDS 10:58
PROVIDERS: ATTEND Surgery
DX: D50.9 Iron deficiency anemia, unspecified (principal); R19.5 Other fecal abnormalities; D12.0 Benign neoplasm of cecum; D12.2 Benign neoplasm of ascending colon; K64.8 Other hemorrhoids; K55.20 Angiodysplasia of colon without hemorrhage; K57.30 Diverticulosis of large intestine without perforation or abscess without bleeding; K22.0 Achalasia of cardia; I10 Essential (primary) hypertension; E11.9 Type 2 diabetes mellitus without complications; E66.9 Obesity, unspecified; Z68.36 Body mass index [BMI] 36.0-36.9, adult; I25.10 Atherosclerotic heart disease of native coronary artery without angina pectoris; J40 Bronchitis, not specified as acute or chronic; E78.00 Pure hypercholesterolemia, unspecified; Z87.891 Personal history of nicotine dependence; Z79.82 Long term (current) use of aspirin; Z79.4 Long term (current) use of insulin; Z79.899 Other long term (current) drug therapy
CPT/HCPCS: 43235; 45380; 82962; J2001; J2704; J3010; J3490; J7120

== ENCOUNTER 2021-01-28 16:51 | Inpatient (IN) | payer MEDICARE, OTHER ==
--- NOTE | 2021-01-28 17:33 | EDM.PDOC ---
ED HPI GENERAL MEDICAL PROBLEM - General Chief Complaint: Respiratory Problem Stated Complaint: COUGH SOB COVID POS Time Seen by Provider: 01/28/21 17:18 Source of Information: Reports: Patient, RN Notes Reviewed History Limitations: Reports: Uncooperative - History of Present Illness INITIAL COMMENTS - FREE TEXT/NARRATIVE: Patient is an 85-year-old male who presents to the ER for the evaluation of his COVID-19 symptoms. Patient did receive IV outpatient Regeneron at our Covid clinic today. The staff at the Covid clinic brought him to the ER for evaluation because his oxygen saturations seem to be within the mid 80s. He was placed on a few liters of oxygen while being in the ER, and his sats did improve to 92 to 93%. He is currently on 4 L nasal cannula. Patient has a sordid medical history. His primary care providers Dr. Perrin. I did discuss the possibility of being hospitalized with the patient due to his hypoxia and he is refusing hospitalization at this time. States he would like to leave. We did warn him that he very well could if he goes home if he leaves AGAINST MEDICAL ADVICE, and he states I am 85, if I am going to so be it. He is not a very great historian, and this is somewhat concerning for his clinical course at this time. - Related Data Allergies Allergy/AdvReac Type Severity Reaction Status Date / Time lisinopril Allergy Cannot Verified 01/28/21 17:17 Remember soap Allergy Sneezing Verified 01/28/21 17:17 Home Meds: Home Meds Aspirin [Halfprin] 162 mg PO DAILY 04/28/15 [History] Clopidogrel [Plavix] 75 mg PO DAILY 04/28/15 [History] Fish Oil/[place]-3 Fatty Acids [Fish Oil 1,000 MG] 1,000 mg PO DAILY 04/28/15 [History] Folic Acid 400 mcg PO DAILY 04/28/15 [History] Hydrochlorothiazide 12.5 mg PO DAILY 04/28/15 [History] Insulin Aspart [NovoLOG] 8 units SQ BID 04/28/15 [History] Insulin Glarg,Human.Rec.Analog [Lantus] 20 units SQ QAM 04/28/15 [History] Multivit-Min/FA/Lycopen/Lutein [Centrum Silver Tablet] 1 tab PO DAILY 04/28/15 [History] NIFEdipine [Nifedipine] 30 mg PO DAILY 04/28/15 [History] Nitroglycerin [Nitrostat] 0.4 mg SL ASDIRECTED PRN 04/28/15 [History] Tamsulosin [Flomax] 0.4 mg PO DAILY 04/02/17 [History] atenoloL [Tenormin] 25 mg PO QPM 04/02/17 [History] Budesonide/Formoterol [Symbicort 160-4.5 MCG] 1 puff INH BID 07/19/18 [History] Calcium Carbonate/Vitamin D3 [Caltrate-600 with Vit D Tab] 1 tab PO BID 07/19/18 [History] Ferrous Sulfate [Iron] 325 mg PO BID 07/19/18 [History] Losartan [Cozaar] 25 mg PO DAILY 07/19/18 [History] Selenium Sulfide/Aloe Vera [Selsun Blue Moist 1% Shampoo] 1 applic TP ASDIRECTED PRN 07/19/18 [History] Tocilizumab [Actemra] 162 mg SQ FR 07/19/18 [History] atorvaSTATin Calcium [Atorvastatin Calcium] 40 mg PO BEDTIME 07/19/18 [History] metFORMIN [Glucophage] 500 mg PO BEDTIME 07/19/18 [History] Past Medical History HEENT History: Reports: Cataract, Impaired Vision Other HEENT History: Patient has dentures Cardiovascular History: Reports: CAD, High Cholesterol, Hypertension, [place], Stents Respiratory History: Reports: Other (See Below) Other Respiratory History: Reactive Airway Disease, Bronchitis Gastrointestinal History: Reports: Hemorrhoids Other Gastrointestinal History: Positive FIT test Genitourinary History: Reports: BPH Musculoskeletal History: Reports: Amputation Other Musculoskeletal History: 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, left hip pain, right hand joint cyst Neurological History: Reports: Headaches, Chronic Endocrine/Metabolic History: Reports: Diabetes, Type II, Obesity/BMI 30+ Other Endocrine/Metabolic History: Fatigue Hematologic History: Reports: Anemia, Folic Acid - Infectious Disease History Infectious Disease History: Reports: Novel Coronavirus - Past Surgical History HEENT Surgical History: Reports: Cataract Surgery Cardiovascular Surgical History: Reports: Coronary Artery Stent GI Surgical History: Reports: Colonoscopy, Hernia Repair/Other Social & Family History - Family History Family Medical History: No Pertinent Family History - Tobacco Use Tobacco Use Status *Q: Never Tobacco User Second Hand Smoke Exposure: No - Caffeine Use Caffeine Use: Reports: Coffee - Recreational Drug Use Recreational Drug Use: No ED ROS GENERAL - Review of Systems Review Of Systems: Comprehensive ROS is negative, except as noted in HPI. ED EXAM, GENERAL - Physical Exam Exam: See Below Exam Limited By: No Limitations General Appearance: Alert, WD/WN, No Apparent Distress Respiratory/Chest: No Respiratory Distress, No Accessory Muscle Use, Chest Non- Tender, Decreased Breath Sounds (diffuse bilateraly), Crackles (bilaterally) Cardiovascular: Normal Peripheral Pulses, Regular Rate, Rhythm, No Edema Peripheral Pulses: 2+: Radial (L), Radial (R) Extremities: Normal Inspection, Normal Capillary Refill Neurological: Alert, Confused (seems slightly confused; generalized. states that he will not stay in the [facility]- adamantly denies the need to stay in the hospital- says if he is to he wants to at home.) Psychiatric: Anxious Skin Exam: Warm, Dry, Intact, Cyanosis (generalized dusky appearance) Course - Vital Signs Last Recorded V/S: Last Vital Signs Temp 98.1 F 01/28/21 17:16 Pulse 81 01/28/21 17:16 Resp 22 H 01/28/21 17:16 BP 129/52 L 01/28/21 17:16 Pulse Ox 95 01/28/21 18:02 - Orders/Labs/Meds Orders: Active Orders 24 hr Category Date Time Status Admission Status [Patient Status] [ADT] Routine ADT 01/28/21 21:11 Ordered Oxygen Therapy, ED [RC] ASDIRECTED Care 01/28/21 17:49 Ordered Peripheral IV Care [RC] . DIRECTED Care 01/28/21 17:51 Ordered Sodium Chloride 0.9% [Saline Flush] Med 01/28/21 17:50 Ordered 10 ml FLUSH ASDIRECTED PRN Peripheral IV Insertion Adult [OM.PC] Routine Oth 01/28/21 17:50 Ordered Medication Orders Sodium Chloride (Sodium Chloride 0.9% 10 Ml Syringe) 10 ml FLUSH ASDIRECTED PRN PRN Reason: Keep Vein Open Last Admin: 01/28/21 18:05 Dose: 10 ml Documented by: JANE Labs: Laboratory Tests 01/28/21 01/28/21 01/28/21 Range/Units 20:28 20:28 20:28 WBC 12.47 H (4.23-9.07) K/mm3 RBC 4.81 (4.63-6.08) M/mm3 Hgb 14.4 D (13.7-17.5) gm/dl Hct 43.3 (40.1-51.0) % MCV 90.0 D (79.0-92.2) fl MCH 29.9 (25.7-32.2) pg MCHC 33.3 (32.2-35.5) g/dl RDW Std Deviation 47.4 H (35.1-43.9) fL Plt Count 76 L D (163-337) K/mm3 MPV 10.6 (9.4-12.3) fl Neut % (Auto) 91.7 H (34.0-67.9) % Lymph % (Auto) 3.8 L (21.8-53.1) % [place] % (Auto) 4.0 L (5.3-12.2) % Eos % (Auto) 0.1 L (0.8-7.0) Baso % (Auto) 0.1 (0.1-1.2) % Neut # (Auto) 11.43 H (1.78-5.38) K/mm3 Lymph # (Auto) 0.48 L (1.32-3.57) K/mm3 [place] # (Auto) 0.50 (0.30-0.82) K/mm3 Eos # (Auto) 0.01 L (0.04-0.54) K/mm3 Baso # (Auto) 0.01 (0.01-0.08) K/mm3 D-Dimer, Quantitative 1.16 H (0.19-0.50) mg/L Sodium 135 L (136-145) mEq/L Potassium 4.2 (3.5-5.1) mEq/L Chloride 102 (98-107) mEq/L Carbon Dioxide 25 (21-32) mEq/L Anion Gap 12.2 (5-15) BUN 26 H (7-18) mg/dL Creatinine 1.4 H (0.7-1.3) mg/dL Est Cr Clr Drug Dosing 34.18 mL/min Estimated GFR (MDRD) 48 (>60) mL/min BUN/Creatinine Ratio 18.6 H (14-18) Glucose 148 H (70-99) mg/dL Calcium 8.6 (8.5-10.1) mg/dL Total Bilirubin 1.1 H (0.2-1.0) mg/dL AST 30 (15-37) U/L ALT 22 (16-63) U/L Alkaline Phosphatase 76 (46-116) U/L C-Reactive Protein 12.3 H* (<1.0) mg/dL Total Protein 6.4 (6.4-8.2) g/dl Albumin 3.2 L (3.4-5.0) g/dl Globulin 3.2 gm/dL Albumin/Globulin Ratio 1.0 (1-2) Meds: Medications Generic Name Dose Route Start Last Admin Trade Name Freq PRN Reason Stop Dose Admin Sodium Chloride 10 ml 01/28/21 17:50 01/28/21 18:05 Sodium Chloride 0.9% 10 Ml Syringe FLUSH 10 ml ASDIRECTED PRN Administration Keep Vein Open Discontinued Medications Generic Name Dose Route Start Last Admin Trade Name Freq PRN Reason Stop Dose Admin Dexamethasone 6 mg 01/28/21 18:57 01/28/21 20:05 Dexamethasone 10 Mg/Ml Sdv IVPUSH 01/28/21 18:58 6 mg ONETIME ONE Administration Lorazepam 1 mg 01/28/21 20:21 Lorazepam 2 Mg/Ml Sdv IVPUSH 01/28/21 20:22 ONETIME ONE - Re-Assessments/Exams Free Text/Narrative Re-Assessment/Exam: 01/28/21 17:48 Patient is an 85-year-old male who is brought over from the [facility] for his ongoing COVID-19. Patient did receive IV Regeneron at the [facility] clinic. His O2 sats did seem to be low, and were found to be about 85 to 86% on room air. Patient is on 3 L nasal cannula at this time, and is roughly 92%. Originally patient states he would not stay in the hospital for any length of time whatsoever, but we were able to speak with his and she did talk him into staying in the hospital. We will go ahead and get some basic labs, chest x-ray and try to expedite his hospitalization at this time. Departure - Departure Time of Disposition: 21:15 Disposition: Admitted As Inpatient 65 Condition: Good Clinical Impression: Hypoxia, COVID-19 - Discharge Information Referrals: Keyla Navarro MD [Primary Care Provider] - Forms: ED Department Discharge Sepsis Event Note (ED) - Focused Exam Vital Signs: Vital Signs Temp Pulse Resp BP Pulse Ox Pulse Ox 01/28/21 18:02 95 01/28/21 17:20 85 L 01/28/21 17:18 90 L 01/28/21 17:16 98.1 F 81 22 H 129/52 L 91 L - My Orders Last 24 Hours: My Active Orders 01/28/21 17:49 Oxygen Therapy, ED [RC] ASDIRECTED 01/28/21 17:50 Sodium Chloride 0.9% [Saline Flush] 10 ml FLUSH ASDIRECTED PRN Peripheral IV Insertion Adult [OM.PC] Routine 01/28/21 17:51 Peripheral IV Care [RC] . DIRECTED 01/28/21 21:11 Admission Status [Patient Status] [ADT] Routine - Assessment/Plan Last 24 Hours: My Active Orders 01/28/21 17:49 Oxygen Therapy, ED [RC] ASDIRECTED 01/28/21 17:50 Sodium Chloride 0.9% [Saline Flush] 10 ml FLUSH ASDIRECTED PRN Peripheral IV Insertion Adult [OM.PC] Routine 01/28/21 17:51 Peripheral IV Care [RC] . DIRECTED 01/28/21 21:11 Admission Status [Patient Status] [ADT] Routine
[2021-01-28] MEDS ORDERED: Sodium Chloride 0.9% 10 ML Syringe FLUSH PRN (17:50)
--- NOTE | 2021-01-28 18:33 | CR ---
Chest: Frontal view of the chest was obtained. Comparison: Prior chest x-ray of 04/02/17. Patchy increased density is seen within the left midlung. Nodule is noted within the left upper lung which is stable and is compatible with a granuloma. Heart size is within normal limits. Tortuous thoracic aorta is seen. Scattered degenerative endplate spurring is noted within the spine. Impression: 1. Patchy increased density within the left mid chest most likely representing an area of pneumonia possibly COVID in etiology. 2. Other findings as noted above which are chronic. Diagnostic code #3
[2021-01-28] MEDS ORDERED: Dexamethasone 10 MG/ML SDV IVPUSH ONE (18:57)
[2021-01-28] MEDS ORDERED: LORazepam 2 MG/ML SDV IVPUSH ONE (20:21)
[2021-01-28] MEDS ORDERED: Acetaminophen 325 MG Tab PO PRN ×2 (21:19)
[2021-01-28] MEDS ORDERED: Ondansetron 4 MG/2 ML SDV IV PRN (21:19)
--- NOTE | 2021-01-28 21:52 | PCM.HP.2 ---
H&P History of Present Illness - General Date of Service: 01/28/21 Admit Problem/Dx: Admission Diagnosis/Problem Admission Diagnosis/Problem Hypoxia - History of Present Illness Initial Comments - Free Text/Narative: 85-year-old male who was at the Covid clinic today getting IV Regeneron was noted to have low oxygen saturations. The clinic provider evaluated Matt and sent him to the emergency department because of oxygen saturations in the mid 80s. In the ER he was placed on 4 L nasal cannula and oxygen saturations increased to the low 90s. Patient was felt to be a bit confused and was refusing hospitalization so his sat with him and convinced him to stay. He has a history of giant cell arteritis, coronary artery disease, diabetes, hypertension, obesity. He is on Actemra for his giant cell arteritis. It appears he is also has thrombocytopenia which she is taking dapsone for. In the emergency department patient did get dexamethasone. Chest x-ray showed a patchy increased density within the left mid chest most likely representing an area of pneumonia possibly Covid in etiology. White count was slightly elevated at 12.5. D-dimer was 1.16 and C-reactive protein of 12.3. Patient did receive both doses of Pfizer vaccine and just this week received a booster dose. - Related Data Allergies/Adverse Reactions: Allergies Allergy/AdvReac Type Severity Reaction Status Date / Time lisinopril Allergy Cannot Verified 01/28/21 17:17 Remember soap Allergy Sneezing Verified 01/28/21 17:17 Home Medications: Home Meds Clopidogrel [Plavix] 75 mg PO DAILY 04/28/15 [History] Fish Oil/[place]-3 Fatty Acids [Fish Oil 1,000 MG] 1,000 mg PO BID 04/28/15 [History] Folic Acid 400 mcg PO DAILY 04/28/15 [History] Hydrochlorothiazide 25 mg PO DAILY 04/28/15 [History] Insulin Aspart [NovoLOG] 8 units SQ BID 04/28/15 [History] Insulin Glarg,Human.Rec.Analog [Lantus] 16 units SQ QAM 04/28/15 [History] Multivit-Min/FA/Lycopen/Lutein [Centrum Silver Tablet] 1 tab PO DAILY 04/28/15 [History] NIFEdipine [Nifedipine] 30 mg PO QPM 04/28/15 [History] Nitroglycerin [Nitrostat] 0.4 mg SL ASDIRECTED PRN 04/28/15 [History] Tamsulosin [Flomax] 0.4 mg PO QPM 04/02/17 [History] atenoloL [Tenormin] 25 mg PO QPM 04/02/17 [History] Budesonide/Formoterol [Symbicort 160-4.5 MCG] 2 puff INH BID 07/19/18 [History] Calcium Carbonate/Vitamin D3 [Caltrate-600 with Vit D Tab] 1 tab PO BID 07/19/18 [History] Losartan [Cozaar] 25 mg PO DAILY 07/19/18 [History] Selenium Sulfide/Aloe Vera [Selsun Blue Moist 1% Shampoo] 1 applic TP ASDIRECTED PRN 07/19/18 [History] Tocilizumab [Actemra] 162 mg SQ FR 07/19/18 [History] atorvaSTATin Calcium [Atorvastatin Calcium] 40 mg PO BEDTIME 07/19/18 [History] metFORMIN [Glucophage] 500 mg PO BEDTIME 07/19/18 [History] Cholecalciferol (Vitamin D3) [Vitamin D3] 25 mcg PO BEDTIME 01/29/21 [History] Dapsone 100 mg PO DAILY 01/29/21 [History] Past Medical History HEENT History: Reports: Cataract, Impaired Vision Other HEENT History: Patient has dentures Cardiovascular History: Reports: CAD, High Cholesterol, Hypertension, [place], Stents Other Cardiovascular History: Chest Pain Respiratory History: Reports: Other (See Below) Other Respiratory History: Reactive Airway Disease, Bronchitis Gastrointestinal History: Reports: Hemorrhoids Other Gastrointestinal History: Positive FIT test Genitourinary History: Reports: BPH Other Genitourinary History: Prostate hypertrophy Musculoskeletal History: Reports: Amputation Other Musculoskeletal History: 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, left hip pain, right hand joint cyst Neurological History: Reports: Headaches, Chronic Psychiatric History: Reports: None Endocrine/Metabolic History: Reports: Diabetes, Type II, Obesity/BMI 30+ Other Endocrine/Metabolic History: Fatigue Hematologic History: Reports: Anemia, Folic Acid Immunologic History: Reports: None Oncologic (Cancer) History: Reports: None - Infectious Disease History Infectious Disease History: Reports: Novel Coronavirus - Past Surgical History HEENT Surgical History: Reports: Cataract Surgery Cardiovascular Surgical History: Reports: Coronary Artery Stent GI Surgical History: Reports: Colonoscopy, Hernia Repair/Other Social & Family History - Family History Family Medical History: No Pertinent Family History - Tobacco Use Tobacco Use Status *Q: Never Tobacco User Second Hand Smoke Exposure: No - Caffeine Use Caffeine Use: Reports: Coffee - Recreational Drug Use Recreational Drug Use: No H&P Review of Systems - Review of Systems: Review Of Systems: Unable To Obtain Reason Not Obtained: Confused Exam - Exam Exam: See Below - Vital Signs Vital Signs: Last Vital Signs Temp 98.1 F 01/28/21 17:16 Pulse 81 01/28/21 17:16 Resp 22 H 01/28/21 17:16 BP 129/52 L 01/28/21 17:16 Pulse Ox 95 01/28/21 18:02 Weight: 222 lb - Exam Quality Assessment: Supplemental Oxygen General: Alert. No: Oriented HEENT: Conjunctiva Clear, Mucosa Moist & [place], Normal Nasal Septum. No: Hearing Intact Neck: Supple, Trachea Midline, 2 Lungs: Normal Respiratory Effort, Crackles (Throughout both lung muro) Cardiovascular: Regular Rate, Regular Rhythm GI/Abdominal Exam: Normal Bowel Sounds, Soft, Non-Tender, No Distention Extremities: Normal Inspection, Normal Range of Motion, Non-Tender, Pedal Edema (1+) Skin: Warm, Dry, Intact Neuro Extensive - Mental Status: Alert, Normal Mood/Affect. No: Normal Cognition Psychiatric: Alert - Patient Data Lab Results Last 24 hrs: Laboratory Results - last 24 hr 01/28/21 01/28/21 01/28/21 Range/Units 20:28 20:28 20:28 WBC 12.47 H (4.23-9.07) K/mm3 RBC 4.81 (4.63-6.08) M/mm3 Hgb 14.4 D (13.7-17.5) gm/dl Hct 43.3 (40.1-51.0) % MCV 90.0 D (79.0-92.2) fl MCH 29.9 (25.7-32.2) pg MCHC 33.3 (32.2-35.5) g/dl RDW Std Deviation 47.4 H (35.1-43.9) fL Plt Count 76 L D (163-337) K/mm3 MPV 10.6 (9.4-12.3) fl Neut % (Auto) 91.7 H (34.0-67.9) % Lymph % (Auto) 3.8 L (21.8-53.1) % [place] % (Auto) 4.0 L (5.3-12.2) % Eos % (Auto) 0.1 L (0.8-7.0) Baso % (Auto) 0.1 (0.1-1.2) % Neut # (Auto) 11.43 H (1.78-5.38) K/mm3 Lymph # (Auto) 0.48 L (1.32-3.57) K/mm3 [place] # (Auto) 0.50 (0.30-0.82) K/mm3 Eos # (Auto) 0.01 L (0.04-0.54) K/mm3 Baso # (Auto) 0.01 (0.01-0.08) K/mm3 Manual Slide Review Abnormal smear D-Dimer, Quantitative 1.16 H (0.19-0.50) mg/L Sodium 135 L (136-145) mEq/L Potassium 4.2 (3.5-5.1) mEq/L Chloride 102 (98-107) mEq/L Carbon Dioxide 25 (21-32) mEq/L Anion Gap 12.2 (5-15) BUN 26 H (7-18) mg/dL Creatinine 1.4 H (0.7-1.3) mg/dL Est Cr Clr Drug Dosing 34.18 mL/min Estimated GFR (MDRD) 48 (>60) mL/min BUN/Creatinine Ratio 18.6 H (14-18) Glucose 148 H (70-99) mg/dL Calcium 8.6 (8.5-10.1) mg/dL Total Bilirubin 1.1 H (0.2-1.0) mg/dL AST 30 (15-37) U/L ALT 22 (16-63) U/L Alkaline Phosphatase 76 (46-116) U/L C-Reactive Protein 12.3 H* (<1.0) mg/dL Total Protein 6.4 (6.4-8.2) g/dl Albumin 3.2 L (3.4-5.0) g/dl Globulin 3.2 gm/dL Albumin/Globulin Ratio 1.0 (1-2) Result Diagrams: 01/29/21 05:11 01/29/21 05:11 Sepsis Event Note - Focused Exam Vital Signs: Vital Signs Temp Pulse Resp BP Pulse Ox Pulse Ox 01/28/21 18:02 95 01/28/21 17:20 85 L 01/28/21 17:18 90 L 01/28/21 17:16 98.1 F 81 22 H 129/52 L 91 L - Problem List (1) Pneumonia due to COVID-19 virus SNOMED Code(s): 543816997976356007 ICD Code: U07.1 - COVID-19; J12.82 - PNEUMONIA DUE TO CORONAVIRUS DISEASE 2018 Status: Acute Current Visit: Yes (2) Giant cell arteritis SNOMED Code(s): 506090925 ICD Code: M31.6 - OTHER GIANT CELL ARTERITIS Status: Acute Current Visit: Yes (3) Diabetes mellitus type 2 in obese SNOMED Code(s): 05051890 ICD Code: E11.69 - TYPE 2 DIABETES MELLITUS WITH OTHER SPECIFIED COMPLICATION; E66.9 - OBESITY, UNSPECIFIED Status: Acute Current Visit: Yes (4) Hypertension SNOMED Code(s): 64271788 ICD Code: I10 - ESSENTIAL (PRIMARY) HYPERTENSION Status: Acute Current Visit: Yes Problem List Initiated/Reviewed/Updated: Yes Orders Last 24hrs: Active Orders 24 hr Category Date Time Status Admission Status [Patient Status] [ADT] Routine ADT 01/28/21 21:11 Active Antiembolic Devices [RC] PER UNIT ROUTINE Care 01/28/21 21:22 Active Nurse Communication: Isolation [RC] ASDIRECTED Care 01/28/21 21:20 Active Oxygen Therapy [RC] PRN Care 01/28/21 21:20 Active Oxygen Therapy, ED [RC] ASDIRECTED Care 01/28/21 17:49 Active Peripheral IV Care [RC] . DIRECTED Care 01/28/21 17:51 Active RT Aerosol Therapy [RC] ASDIRECTED Care 01/28/21 21:22 Active RT Incentive Spirometry [RC] ASDIRECTED Care 01/28/21 21:19 Active Up With Assistance [RC] ASDIRECTED Care 01/28/21 21:19 Active VTE/DVT Education [RC] PER UNIT ROUTINE Care 01/28/21 21:20 Active Vital Signs [RC] Q4H Care 01/28/21 21:20 Active PT Evaluation and Treatment [CONS] Routine Cons 01/28/21 21:19 Active Consistent Carbohydrate Diet [DIET] Diet 01/28/21 Dinner Active C-REACTIVE PROTEIN [CHEM] AM Lab 01/29/21 05:11 Ordered C-REACTIVE PROTEIN [CHEM] AM Lab 01/30/21 05:11 Ordered C-REACTIVE PROTEIN [CHEM] AM Lab 01/31/21 05:11 Ordered C-REACTIVE PROTEIN [CHEM] AM Lab 02/01/21 05:11 Ordered C-REACTIVE PROTEIN [CHEM] AM Lab 02/02/21 05:11 Ordered CBC WITH AUTO DIFF [HEME] AM Lab 01/29/21 05:11 Ordered CBC WITH AUTO DIFF [HEME] AM Lab 01/30/21 05:11 Ordered CBC WITH AUTO DIFF [HEME] AM Lab 01/31/21 05:11 Ordered CBC WITH AUTO DIFF [HEME] AM Lab 02/01/21 05:11 Ordered CBC WITH AUTO DIFF [HEME] AM Lab 02/02/21 05:11 Ordered CMP [COMPREHENSIVE METABOLIC PN,CMP] [CHEM] AM Lab 01/29/21 05:11 Ordered CMP [COMPREHENSIVE METABOLIC PN,CMP] [CHEM] AM Lab 01/30/21 05:11 Ordered CMP [COMPREHENSIVE METABOLIC PN,CMP] [CHEM] AM Lab 01/31/21 05:11 Ordered CMP [COMPREHENSIVE METABOLIC PN,CMP] [CHEM] AM Lab 02/01/21 05:11 Ordered CMP [COMPREHENSIVE METABOLIC PN,CMP] [CHEM] AM Lab 02/02/21 05:11 Ordered MAGNESIUM [CHEM] AM Lab 01/29/21 05:11 Ordered MAGNESIUM [CHEM] AM Lab 01/30/21 05:11 Ordered MAGNESIUM [CHEM] AM Lab 01/31/21 05:11 Ordered MAGNESIUM [CHEM] AM Lab 02/01/21 05:11 Ordered MAGNESIUM [CHEM] AM Lab 02/02/21 05:11 Ordered PHOSPHORUS [CHEM] AM Lab 01/29/21 05:11 Ordered PHOSPHORUS [CHEM] AM Lab 01/30/21 05:11 Ordered PHOSPHORUS [CHEM] AM Lab 01/31/21 05:11 Ordered PHOSPHORUS [CHEM] AM Lab 02/01/21 05:11 Ordered PHOSPHORUS [CHEM] AM Lab 02/02/21 05:11 Ordered Acetaminophen [TylenoL] Med 01/28/21 21:19 Active 650 mg PO Q4H PRN Acetaminophen [TylenoL] Med 01/28/21 21:19 Active 650 mg PO Q4H PRN Albuterol/Ipratropium [DuoNeb 3.0-0.5 MG/3 ML] Med 01/28/21 21:19 Active 3 ml NEB Q4H PRN Ondansetron [Zofran] Med 01/28/21 21:19 Active 4 mg IV Q6H PRN Sodium Chloride 0.9% [Saline Flush] Med 01/28/21 17:50 Active 10 ml FLUSH ASDIRECTED PRN dexAMETHasone [Decadron] Med 01/29/21 09:00 Active 6 mg IVPUSH DAILY Isolation [COMM] Stat Oth 01/28/21 21:20 Ordered Peripheral IV Insertion Adult [OM.PC] Routine Oth 01/28/21 17:50 Ordered RT Acapella [RESPCARE] Routine Oth 01/28/21 21:19 Active Sequential Compression Device [OM.PC] Per Unit Routine Oth 01/28/21 21:21 Ordered Resuscitation Status Routine Resus Stat 01/28/21 21:19 Ordered Medication Orders Acetaminophen (Acetaminophen 325 Mg Tab) 650 mg PO Q4H PRN PRN Reason: Pain (Mild 1-3)/fever Acetaminophen (Acetaminophen 325 Mg Tab) 650 mg PO Q4H PRN PRN Reason: Fever Greater Than 101 Albuterol/Ipratropium (Albuterol/Ipratropium 3.0-0.5 Mg/3 Ml Neb Soln) 3 ml NEB Q4H PRN PRN Reason: Shortness Of Breath/wheezing Dexamethasone (Dexamethasone 10 Mg/Ml Sdv) 6 mg IVPUSH DAILY DARIUSZ Stop: 02/07/21 09:01 Ondansetron HCl (Ondansetron 4 Mg/2 Ml Sdv) 4 mg IV Q6H PRN PRN Reason: Nausea/Vomiting Sodium Chloride (Sodium Chloride 0.9% 10 Ml Syringe) 10 ml FLUSH ASDIRECTED PRN PRN Reason: Keep Vein Open Last Admin: 01/28/21 18:05 Dose: 10 ml Documented by: JANE Assessment/Plan Comment:: 85-year-old male with multiple medical problems including immunosuppressant medications, Actemra, admitted with COVID-19 pneumonia COVID-19 pneumonia with hypoxia * Patient received Regeneron in the clinic today * Received full course of Pfizer vaccine and booster this week * Initial oxygen saturations were in the mid 90s * Received dexamethasone in the emergency department * Chest x-ray consistent with pneumonia, possibly Covid in etiology * White count slightly elevated at 12.5, C-reactive protein 12.3, D-dimer 1.16 Acute renal insufficiency * BUN 26, creatinine 1.4, estimated GFR 48 * Patient denies history of renal disease Type 2 diabetes mellitusinsulin-dependent * Home medications include Metformin, basal and prandial insulin * Unknown hemoglobin A1c Giant cell arteritis * Currently getting Actemra 162 mg subcu weekly * Not on chronic steroids Thrombocytopenia * I do not have access to old records on the weekend * 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 Follow D- dimer every other day * Get procalcitonin * VTE prophylaxis with Xarelto. Lovenox/heparin is contraindicated secondary to the thrombocytopenia and patients with COVID-19 or very high incidence of VTE. * CODE STATUS: Full code - Mortality Measure Prognosis:: Poor (Multiple comorbidities including immunosuppressant medications in an elderly male)
[2021-01-28] MEDS: Insulin Lispro 100 UNIT/ML 10 ML Vial SUBCUT SCH (23:00)
[2021-01-28] MEDS ORDERED: FLU Vacc QS2021(65UP)/MF59C/PF 60 MCG/0.5 ML Syringe IM ONE (23:45)
[2021-01-29 05:44] LABS: HEMOGLOBIN A1C 4.8 %
[2021-01-29] MEDS: Insulin Lispro 100 UNIT/ML 10 ML Vial SUBCUT SCH ×4 (07:50→21:33)
[2021-01-29] MEDS: cefTRIAXone 2 GM in Sodium Chloride 0.9% 100 ML IV SCH (07:51)
[2021-01-29] MEDS: Dexamethasone 10 MG/ML SDV IVPUSH SCH (08:24)
[2021-01-29] MEDS: Azithromycin 500 MG in Sodium Chloride 0.9% 250 ML IV SCH (08:24)
[2021-01-29] MEDS: Insulin Glarg,Human.Rec.Analog 100 Unit/ML SUBCUT SCH (08:25)
[2021-01-29] MEDS: Albuterol/Ipratropium 3.0-0.5 MG/3 ML Neb Soln NEB PRN ×2 (09:05→16:36)
[2021-01-29] MEDS ORDERED: Nitroglycerin 0.4 MG Tab.SL SL PRN (09:37)
[2021-01-29] MEDS: DAPSONE 100 MG PO SCH (11:02)
[2021-01-29] MEDS: Folic Acid 1 MG Tab PO SCH (11:02)
[2021-01-29] MEDS: Rivaroxaban 10 MG Tab PO SCH (11:02)
[2021-01-29] MEDS: Clopidogrel 75 MG Tab PO SCH (11:02)
--- NOTE | 2021-01-29 11:06 | PCM.PN ---
- General Info Date of Service: 01/29/21 Admission Dx/Problem (Free Text): Admission Diagnosis/Problem Admission Diagnosis/Problem Hypoxia Subjective Update: 85-year-old male with giant cell arteritis, diabetes, coronary artery disease, hypertension admitted with COVID-19 pneumonia. Patient wants to go home. Other than that he had not much to say. Functional Status: Reports: Pain Controlled - Review of Systems General: Reports: Fatigue HEENT: Reports: No Symptoms Pulmonary: Reports: No Symptoms Cardiovascular: Reports: No Symptoms Musculoskeletal: Reports: No Symptoms - Patient Data Vitals - Most Recent: Last Vital Signs Temp 97.5 F 01/29/21 07:38 Pulse 71 01/29/21 07:38 Resp 18 01/29/21 07:38 BP 136/90 01/29/21 07:38 Pulse Ox 93 L 01/29/21 10:23 Weight - Most Recent: 223 lb 4.8 oz I&O - Last 24 Hours: Intake & Output 01/28/21 01/29/21 01/29/21 22:59 06:59 14:59 Intake Total 320 Output Total 200 Balance 120 Lab Results Last 24 Hours: Laboratory Results - last 24 hr 01/28/21 01/28/21 01/28/21 Range/Units 20:28 20:28 20:28 WBC 12.47 H (4.23-9.07) K/mm3 RBC 4.81 (4.63-6.08) M/mm3 Hgb 14.4 D (13.7-17.5) gm/dl Hct 43.3 (40.1-51.0) % MCV 90.0 D (79.0-92.2) fl MCH 29.9 (25.7-32.2) pg MCHC 33.3 (32.2-35.5) g/dl RDW Std Deviation 47.4 H (35.1-43.9) fL Plt Count 76 L D (163-337) K/mm3 MPV 10.6 (9.4-12.3) fl Neut % (Auto) 91.7 H (34.0-67.9) % Lymph % (Auto) 3.8 L (21.8-53.1) % [place] % (Auto) 4.0 L (5.3-12.2) % Eos % (Auto) 0.1 L (0.8-7.0) Baso % (Auto) 0.1 (0.1-1.2) % Neut # (Auto) 11.43 H (1.78-5.38) K/mm3 Lymph # (Auto) 0.48 L (1.32-3.57) K/mm3 [place] # (Auto) 0.50 (0.30-0.82) K/mm3 Eos # (Auto) 0.01 L (0.04-0.54) K/mm3 Baso # (Auto) 0.01 (0.01-0.08) K/mm3 Manual Slide Review Abnormal smear D-Dimer, Quantitative 1.16 H (0.19-0.50) mg/L Sodium 135 L (136-145) mEq/L Potassium 4.2 (3.5-5.1) mEq/L Chloride 102 (98-107) mEq/L Carbon Dioxide 25 (21-32) mEq/L Anion Gap 12.2 (5-15) BUN 26 H (7-18) mg/dL Creatinine 1.4 H (0.7-1.3) mg/dL Est Cr Clr Drug Dosing 34.18 mL/min Estimated GFR (MDRD) 48 (>60) mL/min BUN/Creatinine Ratio 18.6 H (14-18) Glucose 148 H (70-99) mg/dL POC Glucose (70-99) mg/dL Hemoglobin A1c ( - 5.6) % Calcium 8.6 (8.5-10.1) mg/dL Phosphorus (2.6-4.7) mg/dL Magnesium (1.8-2.4) mg/dL Total Bilirubin 1.1 H (0.2-1.0) mg/dL AST 30 (15-37) U/L ALT 22 (16-63) U/L Alkaline Phosphatase 76 (46-116) U/L C-Reactive Protein 12.3 H* (<1.0) mg/dL Total Protein 6.4 (6.4-8.2) g/dl Albumin 3.2 L (3.4-5.0) g/dl Globulin 3.2 gm/dL Albumin/Globulin Ratio 1.0 (1-2) 01/28/21 01/29/21 01/29/21 Range/Units 22:50 05:11 05:11 WBC 19.17 H (4.23-9.07) K/mm3 RBC 4.64 (4.63-6.08) M/mm3 Hgb 13.6 L (13.7-17.5) gm/dl Hct 42.2 (40.1-51.0) % MCV 90.9 (79.0-92.2) fl MCH 29.3 (25.7-32.2) pg MCHC 32.2 (32.2-35.5) g/dl RDW Std Deviation 47.9 H (35.1-43.9) fL Plt Count 73 L (163-337) K/mm3 MPV 10.8 (9.4-12.3) fl Neut % (Auto) 92.3 H (34.0-67.9) % Lymph % (Auto) 3.8 L (21.8-53.1) % [place] % (Auto) 3.0 L (5.3-12.2) % Eos % (Auto) 0.2 L (0.8-7.0) Baso % (Auto) 0.1 (0.1-1.2) % Neut # (Auto) 17.70 H (1.78-5.38) K/mm3 Lymph # (Auto) 0.73 L (1.32-3.57) K/mm3 [place] # (Auto) 0.57 (0.30-0.82) K/mm3 Eos # (Auto) 0.04 (0.04-0.54) K/mm3 Baso # (Auto) 0.02 (0.01-0.08) K/mm3 Manual Slide Review Abnormal smear D-Dimer, Quantitative (0.19-0.50) mg/L Sodium 138 (136-145) mEq/L Potassium 4.4 (3.5-5.1) mEq/L Chloride 105 (98-107) mEq/L Carbon Dioxide 24 (21-32) mEq/L Anion Gap 13.4 (5-15) BUN 31 H (7-18) mg/dL Creatinine 1.5 H (0.7-1.3) mg/dL Est Cr Clr Drug Dosing 33.05 mL/min Estimated GFR (MDRD) 44 (>60) mL/min BUN/Creatinine Ratio 20.7 H (14-18) Glucose 217 H (70-99) mg/dL POC Glucose 161 H (70-99) mg/dL Hemoglobin A1c ( - 5.6) % Calcium 8.3 L (8.5-10.1) mg/dL Phosphorus 3.8 (2.6-4.7) mg/dL Magnesium 2.0 (1.8-2.4) mg/dL Total Bilirubin 0.8 (0.2-1.0) mg/dL AST 33 (15-37) U/L ALT 23 (16-63) U/L Alkaline Phosphatase 66 (46-116) U/L C-Reactive Protein 20.1 H* (<1.0) mg/dL Total Protein 5.9 L (6.4-8.2) g/dl Albumin 2.6 L (3.4-5.0) g/dl Globulin 3.3 gm/dL Albumin/Globulin Ratio 0.8 L (1-2) 01/29/21 01/29/21 01/29/21 Range/Units 05:11 05:52 10:12 WBC (4.23-9.07) K/mm3 RBC (4.63-6.08) M/mm3 Hgb (13.7-17.5) gm/dl Hct (40.1-51.0) % MCV (79.0-92.2) fl MCH (25.7-32.2) pg MCHC (32.2-35.5) g/dl RDW Std Deviation (35.1-43.9) fL Plt Count (163-337) K/mm3 MPV (9.4-12.3) fl Neut % (Auto) (34.0-67.9) % Lymph % (Auto) (21.8-53.1) % [place] % (Auto) (5.3-12.2) % Eos % (Auto) (0.8-7.0) Baso % (Auto) (0.1-1.2) % Neut # (Auto) (1.78-5.38) K/mm3 Lymph # (Auto) (1.32-3.57) K/mm3 [place] # (Auto) (0.30-0.82) K/mm3 Eos # (Auto) (0.04-0.54) K/mm3 Baso # (Auto) (0.01-0.08) K/mm3 Manual Slide Review D-Dimer, Quantitative (0.19-0.50) mg/L Sodium (136-145) mEq/L Potassium (3.5-5.1) mEq/L Chloride (98-107) mEq/L Carbon Dioxide (21-32) mEq/L Anion Gap (5-15) BUN (7-18) mg/dL Creatinine (0.7-1.3) mg/dL Est Cr Clr Drug Dosing mL/min Estimated GFR (MDRD) (>60) mL/min BUN/Creatinine Ratio (14-18) Glucose (70-99) mg/dL POC Glucose 187 H 222 H (70-99) mg/dL Hemoglobin A1c 4.8 ( - 5.6) % Calcium (8.5-10.1) mg/dL Phosphorus (2.6-4.7) mg/dL Magnesium (1.8-2.4) mg/dL Total Bilirubin (0.2-1.0) mg/dL AST (15-37) U/L ALT (16-63) U/L Alkaline Phosphatase (46-116) U/L C-Reactive Protein (<1.0) mg/dL Total Protein (6.4-8.2) g/dl Albumin (3.4-5.0) g/dl Globulin gm/dL Albumin/Globulin Ratio (1-2) Med Orders - Current: Current Medications Acetaminophen (Acetaminophen 325 Mg Tab) 650 mg PO Q4H PRN PRN Reason: Pain (Mild 1-3)/fever >101 Last Admin: 01/28/21 22:51 Dose: 650 mg Documented by: Albuterol/Ipratropium (Albuterol/Ipratropium 3.0-0.5 Mg/3 Ml Neb Soln) 3 ml NEB Q4H PRN PRN Reason: Shortness Of Breath/wheezing Last Admin: 01/29/21 09:05 Dose: 3 ml Documented by: Atenolol (Atenolol 25 Mg Tab) 25 mg PO QPM [facility] Cholecalciferol (Cholecalciferol (Vitamin D3) 25 Mcg Tab) 25 mcg PO BEDTIME [facility] Clopidogrel Bisulfate (Clopidogrel 75 Mg Tab) 75 mg PO DAILY [facility] Last Admin: 01/29/21 11:02 Dose: 75 mg Documented by: Dexamethasone (Dexamethasone 10 Mg/Ml Sdv) 6 mg IVPUSH DAILY [facility] Stop: 02/07/21 09:01 Last Admin: 01/29/21 08:24 Dose: 6 mg Documented by: Folic Acid (Folic Acid 1 Mg Tab) 0.5 mg PO DAILY [facility] Last Admin: 01/29/21 11:02 Dose: 0.5 mg Documented by: Ceftriaxone Sodium 2 gm/ (Sodium Chloride) 100 mls @ 200 mls/hr IV Q24H [facility] Stop: 02/02/21 07:59 Last Admin: 01/29/21 07:51 Dose: 200 mls/hr Documented by: Azithromycin 500 mg/ Sodium (Chloride) 250 mls @ 250 mls/hr IV Q24H [facility] Stop: 01/31/21 08:29 Last Admin: 01/29/21 08:24 Dose: 250 mls/hr Documented by: Insulin Glargine (Insulin Glarg,Human.Rec.Analog 100 Unit/Ml) 15 unit SUBCUT DAILY [facility] Last Admin: 01/29/21 08:25 Dose: 15 units Documented by: Insulin Human Lispro (Insulin Lispro 100 Unit/Ml 10 Ml Vial) 0 unit SUBCUT QIDACANDBED [facility]; Protocol Last Admin: 01/29/21 11:03 Dose: 4 units Documented by: Nifedipine (Nifedipine 30 Mg Tab.Er) 30 mg PO QPM [facility] Nitroglycerin (Nitroglycerin 0.4 Mg Tab.Sl) 0.4 mg SL ASDIRECTED PRN PRN Reason: Chest Pain Dapsone 100 Mg (TabletOwn Med) 100 mg PO DAILY [facility] Last Admin: 01/29/21 11:02 Dose: 100 mg Documented by: Tocilizumab 162 Mg/0 (.9 Ml MlOwn Med) 162 mg SQ FR [facility] Ondansetron HCl (Ondansetron 4 Mg/2 Ml Sdv) 4 mg IV Q6H PRN PRN Reason: Nausea/Vomiting Rivaroxaban (Rivaroxaban 10 Mg Tab) 10 mg PO DAILY [facility] Last Admin: 01/29/21 11:02 Dose: 10 mg Documented by: Rosuvastatin Calcium (Rosuvastatin 10 Mg Tab) 10 mg PO BEDTIME [facility] Sodium Chloride (Sodium Chloride 0.9% 10 Ml Syringe) 10 ml FLUSH ASDIRECTED PRN PRN Reason: Keep Vein Open Last Admin: 01/28/21 18:05 Dose: 10 ml Documented by: Tamsulosin HCl (Tamsulosin 0.4 Mg Cap.Er) 0.4 mg PO QPM [facility] Discontinued Medications Acetaminophen (Acetaminophen 325 Mg Tab) 650 mg PO Q4H PRN PRN Reason: Fever Greater Than 101 Dexamethasone (Dexamethasone 10 Mg/Ml Sdv) 6 mg IVPUSH ONETIME ONE Stop: 01/28/21 18:58 Last Admin: 01/28/21 20:05 Dose: 6 mg Documented by: Influenza Virus Vaccine (Pharmacy To Dose - Influenza Vaccine) 1 each IM ONET GOLD ONE Stop: 01/28/21 23:49 Influenza Virus Vaccine (Flu Vacc Hz5178(65up)/Mf59c/Pf 60 Mcg/0.5 Ml Syringe) 60 mcg IM .ONCE ONE Stop: 01/28/21 23:46 Lorazepam (Lorazepam 2 Mg/Ml Sdv) 1 mg IVPUSH ONETIME ONE Stop: 01/28/21 20:22 Last Admin: 01/28/21 22:00 Dose: Not Given Documented by: - Exam Quality Assessment: Supplemental Oxygen General: Alert HEENT: Pupils Equal, Mucous Membr. Moist/[place] Neck: Supple Lungs: Normal Respiratory Effort, Crackles (Bibasilar crackles) Cardiovascular: Regular Rate, Regular Rhythm GI/Abdominal Exam: Normal Bowel Sounds, Soft, Non-Tender, No Distention Extremities: Normal Inspection, Normal Range of Motion, No Pedal Edema Skin: Warm, Dry, Intact Neurological: No New Focal Deficit - Patient Data Lab Results Last 24 hrs: Laboratory Results - last 24 hr 01/28/21 01/28/21 01/28/21 Range/Units 20:28 20:28 20:28 WBC 12.47 H (4.23-9.07) K/mm3 RBC 4.81 (4.63-6.08) M/mm3 Hgb 14.4 D (13.7-17.5) gm/dl Hct 43.3 (40.1-51.0) % MCV 90.0 D (79.0-92.2) fl MCH 29.9 (25.7-32.2) pg MCHC 33.3 (32.2-35.5) g/dl RDW Std Deviation 47.4 H (35.1-43.9) fL Plt Count 76 L D (163-337) K/mm3 MPV 10.6 (9.4-12.3) fl Neut % (Auto) 91.7 H (34.0-67.9) % Lymph % (Auto) 3.8 L (21.8-53.1) % [place] % (Auto) 4.0 L (5.3-12.2) % Eos % (Auto) 0.1 L (0.8-7.0) Baso % (Auto) 0.1 (0.1-1.2) % Neut # (Auto) 11.43 H (1.78-5.38) K/mm3 Lymph # (Auto) 0.48 L (1.32-3.57) K/mm3 [place] # (Auto) 0.50 (0.30-0.82) K/mm3 Eos # (Auto) 0.01 L (0.04-0.54) K/mm3 Baso # (Auto) 0.01 (0.01-0.08) K/mm3 Manual Slide Review Abnormal smear D-Dimer, Quantitative 1.16 H (0.19-0.50) mg/L Sodium 135 L (136-145) mEq/L Potassium 4.2 (3.5-5.1) mEq/L Chloride 102 (98-107) mEq/L Carbon Dioxide 25 (21-32) mEq/L Anion Gap 12.2 (5-15) BUN 26 H (7-18) mg/dL Creatinine 1.4 H (0.7-1.3) mg/dL Est Cr Clr Drug Dosing 34.18 mL/min Estimated GFR (MDRD) 48 (>60) mL/min BUN/Creatinine Ratio 18.6 H (14-18) Glucose 148 H (70-99) mg/dL POC Glucose (70-99) mg/dL Hemoglobin A1c ( - 5.6) % Calcium 8.6 (8.5-10.1) mg/dL Phosphorus (2.6-4.7) mg/dL Magnesium (1.8-2.4) mg/dL Total Bilirubin 1.1 H (0.2-1.0) mg/dL AST 30 (15-37) U/L ALT 22 (16-63) U/L Alkaline Phosphatase 76 (46-116) U/L C-Reactive Protein 12.3 H* (<1.0) mg/dL Total Protein 6.4 (6.4-8.2) g/dl Albumin 3.2 L (3.4-5.0) g/dl Globulin 3.2 gm/dL Albumin/Globulin Ratio 1.0 (1-2) 01/28/21 01/29/21 01/29/21 Range/Units 22:50 05:11 05:11 WBC 19.17 H (4.23-9.07) K/mm3 RBC 4.64 (4.63-6.08) M/mm3 Hgb 13.6 L (13.7-17.5) gm/dl Hct 42.2 (40.1-51.0) % MCV 90.9 (79.0-92.2) fl MCH 29.3 (25.7-32.2) pg MCHC 32.2 (32.2-35.5) g/dl RDW Std Deviation 47.9 H (35.1-43.9) fL Plt Count 73 L (163-337) K/mm3 MPV 10.8 (9.4-12.3) fl Neut % (Auto) 92.3 H (34.0-67.9) % Lymph % (Auto) 3.8 L (21.8-53.1) % [place] % (Auto) 3.0 L (5.3-12.2) % Eos % (Auto) 0.2 L (0.8-7.0) Baso % (Auto) 0.1 (0.1-1.2) % Neut # (Auto) 17.70 H (1.78-5.38) K/mm3 Lymph # (Auto) 0.73 L (1.32-3.57) K/mm3 [place] # (Auto) 0.57 (0.30-0.82) K/mm3 Eos # (Auto) 0.04 (0.04-0.54) K/mm3 Baso # (Auto) 0.02 (0.01-0.08) K/mm3 Manual Slide Review Abnormal smear D-Dimer, Quantitative (0.19-0.50) mg/L Sodium 138 (136-145) mEq/L Potassium 4.4 (3.5-5.1) mEq/L Chloride 105 (98-107) mEq/L Carbon Dioxide 24 (21-32) mEq/L Anion Gap 13.4 (5-15) BUN 31 H (7-18) mg/dL Creatinine 1.5 H (0.7-1.3) mg/dL Est Cr Clr Drug Dosing 33.05 mL/min Estimated GFR (MDRD) 44 (>60) mL/min BUN/Creatinine Ratio 20.7 H (14-18) Glucose 217 H (70-99) mg/dL POC Glucose 161 H (70-99) mg/dL Hemoglobin A1c ( - 5.6) % Calcium 8.3 L (8.5-10.1) mg/dL Phosphorus 3.8 (2.6-4.7) mg/dL Magnesium 2.0 (1.8-2.4) mg/dL Total Bilirubin 0.8 (0.2-1.0) mg/dL AST 33 (15-37) U/L ALT 23 (16-63) U/L Alkaline Phosphatase 66 (46-116) U/L C-Reactive Protein 20.1 H* (<1.0) mg/dL Total Protein 5.9 L (6.4-8.2) g/dl Albumin 2.6 L (3.4-5.0) g/dl Globulin 3.3 gm/dL Albumin/Globulin Ratio 0.8 L (1-2) 01/29/21 01/29/21 01/29/21 Range/Units 05:11 05:52 10:12 WBC (4.23-9.07) K/mm3 RBC (4.63-6.08) M/mm3 Hgb (13.7-17.5) gm/dl Hct (40.1-51.0) % MCV (79.0-92.2) fl MCH (25.7-32.2) pg MCHC (32.2-35.5) g/dl RDW Std Deviation (35.1-43.9) fL Plt Count (163-337) K/mm3 MPV (9.4-12.3) fl Neut % (Auto) (34.0-67.9) % Lymph % (Auto) (21.8-53.1) % [place] % (Auto) (5.3-12.2) % Eos % (Auto) (0.8-7.0) Baso % (Auto) (0.1-1.2) % Neut # (Auto) (1.78-5.38) K/mm3 Lymph # (Auto) (1.32-3.57) K/mm3 [place] # (Auto) (0.30-0.82) K/mm3 Eos # (Auto) (0.04-0.54) K/mm3 Baso # (Auto) (0.01-0.08) K/mm3 Manual Slide Review D-Dimer, Quantitative (0.19-0.50) mg/L Sodium (136-145) mEq/L Potassium (3.5-5.1) mEq/L Chloride (98-107) mEq/L Carbon Dioxide (21-32) mEq/L Anion Gap (5-15) BUN (7-18) mg/dL Creatinine (0.7-1.3) mg/dL Est Cr Clr Drug Dosing mL/min Estimated GFR (MDRD) (>60) mL/min BUN/Creatinine Ratio (14-18) Glucose (70-99) mg/dL POC Glucose 187 H 222 H (70-99) mg/dL Hemoglobin A1c 4.8 ( - 5.6) % Calcium (8.5-10.1) mg/dL Phosphorus (2.6-4.7) mg/dL Magnesium (1.8-2.4) mg/dL Total Bilirubin (0.2-1.0) mg/dL AST (15-37) U/L ALT (16-63) U/L Alkaline Phosphatase (46-116) U/L C-Reactive Protein (<1.0) mg/dL Total Protein (6.4-8.2) g/dl Albumin (3.4-5.0) g/dl Globulin gm/dL Albumin/Globulin Ratio (1-2) Result Diagrams: 01/29/21 05:11 01/29/21 05:11 Sepsis Event Note - Evaluation Sepsis Screening Result: Possible Sepsis Risk - Focused Exam Vital Signs: Vital Signs Temp Pulse Resp BP Pulse Ox Pulse Ox 01/29/21 10:23 93 L 01/29/21 09:05 95 01/29/21 07:38 97.5 F 71 18 136/90 94 L 01/29/21 05:56 98.1 F 72 22 H 123/44 L 94 L 01/29/21 00:11 98.1 F 01/28/21 23:33 100.6 F 85 22 H 150/52 H 92 L 01/28/21 23:32 100.6 F 82 91 L - Problem List & Annotations (1) Pneumonia due to COVID-19 virus SNOMED Code(s): 091354139944658048 Code(s): U07.1 - COVID-19; J12.82 - PNEUMONIA DUE TO CORONAVIRUS DISEASE 2018 Status: Acute Current Visit: Yes (2) Giant cell arteritis SNOMED Code(s): 631876108 Code(s): M31.6 - OTHER GIANT CELL ARTERITIS Status: Acute Current Visit: Yes (3) Diabetes mellitus type 2 in obese SNOMED Code(s): 01867895 Code(s): E11.69 - TYPE 2 DIABETES MELLITUS WITH OTHER SPECIFIED COMPLICATION; E66.9 - OBESITY, UNSPECIFIED Status: Acute Current Visit: Yes (4) Hypertension SNOMED Code(s): 92168323 Code(s): I10 - ESSENTIAL (PRIMARY) HYPERTENSION Status: Acute Current Visit: Yes - Problem List Review Problem List Initiated/Reviewed/Updated: Yes - My Orders Last 24 Hours: My Active Orders 01/28/21 Dinner Consistent Carbohydrate Diet [DIET] 01/28/21 21:19 RT Incentive Spirometry [RC] Q1HWA Up With Assistance [RC] BID PT Evaluation and Treatment [CONS] Routine Acetaminophen [TylenoL] 650 mg PO Q4H PRN Albuterol/Ipratropium [DuoNeb 3.0-0.5 MG/3 ML] 3 ml NEB Q4H PRN Ondansetron [Zofran] 4 mg IV Q6H PRN RT Acapella [RESPCARE] Routine Resuscitation Status Routine 01/28/21 21:20 Oxygen Therapy [RC] PRN VTE/DVT Education [RC] PER UNIT ROUTINE Vital Signs [RC] Q4HR Isolation [COMM] Stat 01/28/21 21:21 Sequential Compression Device [OM.PC] Per Unit Routine 01/28/21 21:22 Antiembolic Devices [RC] BID RT Aerosol Therapy [RC] ASDIRECTED 01/28/21 21:52 Blood Glucose Check, Bedside [RC] QIDACANDBED 01/28/21 22:00 Insulin Lispro [HumaLOG] See Protocol SUBCUT QIDACANDBED 01/28/21 23:48 Vaccine to be Administered/Admin Charge [RC] ASDIRECTED 01/29/21 07:18 PROCALCITONIN [REF] Routine Blood Culture x2 Reflex Set [OM.PC] Stat 01/29/21 07:30 Azithromycin [Zithromax] 500 mg Sodium Chloride 0.9% [Normal Saline (AdvBag)] 250 ml IV Q24H cefTRIAXone [Rocephin] 2 gm Sodium Chloride 0.9% [Normal Saline] 100 ml IV Q24H 01/29/21 07:45 BLOOD CULTURE [MREF] Stat 01/29/21 07:49 BLOOD CULTURE [MREF] Stat 01/29/21 09:00 Insulin Glarg,Human.Rec.Analog [LantUS] 15 unit SUBCUT DAILY dexAMETHasone [Decadron] 6 mg IVPUSH DAILY 01/29/21 09:37 Nitroglycerin [Nitrostat] 0.4 mg SL ASDIRECTED PRN 01/29/21 09:45 Clopidogrel [Plavix] 75 mg PO DAILY 01/29/21 10:00 Rivaroxaban [Xarelto] 10 mg PO DAILY 01/29/21 11:00 Dapsone 100 mg PO DAILY Folic Acid 0.5 mg PO DAILY 01/29/21 18:00 NIFEdipine [Procardia XL] 30 mg PO QPM Tamsulosin [Flomax] 0.4 mg PO QPM atenoloL [Tenormin] 25 mg PO QPM 01/29/21 21:00 Cholecalciferol (Vitamin D3) [Vitamin D3] 25 mcg PO BEDTIME Rosuvastatin [Crestor] 10 mg PO BEDTIME 01/30/21 05:11 C-REACTIVE PROTEIN [CHEM] AM CBC WITH AUTO DIFF [HEME] AM CMP [COMPREHENSIVE METABOLIC PN,CMP] [CHEM] AM MAGNESIUM [CHEM] AM PHOSPHORUS [CHEM] AM 01/31/21 05:11 C-REACTIVE PROTEIN [CHEM] AM CBC WITH AUTO DIFF [HEME] AM CMP [COMPREHENSIVE METABOLIC PN,CMP] [CHEM] AM MAGNESIUM [CHEM] AM PHOSPHORUS [CHEM] AM 02/01/21 05:11 C-REACTIVE PROTEIN [CHEM] AM CBC WITH AUTO DIFF [HEME] AM CMP [COMPREHENSIVE METABOLIC PN,CMP] [CHEM] AM MAGNESIUM [CHEM] AM PHOSPHORUS [CHEM] AM 02/02/21 05:11 C-REACTIVE PROTEIN [CHEM] AM CBC WITH AUTO DIFF [HEME] AM CMP [COMPREHENSIVE METABOLIC PN,CMP] [CHEM] AM MAGNESIUM [CHEM] AM PHOSPHORUS [CHEM] AM 02/04/21 09:00 Tocilizumab 162 mg SQ FR - Plan Plan:: 85-year-old male with multiple medical problems including immunosuppressant medications, Actemra, admitted with COVID-19 pneumonia COVID-19 pneumonia with hypoxia * Patient received Regeneron on the day of admission * Received full course of Pfizer vaccine and booster this week * Initial oxygen saturations were in the mid 80s * Received dexamethasone in the emergency department * Chest x-ray consistent with pneumonia, possibly Covid in etiology * White count increased to 19 likely secondary to steroids. CRP increased to 20. 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 Follow D-dime r every other day * Procalcitonin pending * VTE prophylaxis with Xarelto. Lovenox/heparin is contraindicated secondary to the thrombocytopenia and patients with COVID-19 or very high incidence of VTE. * CODE STATUS: Full code
[2021-01-29] MEDS: NIFEdipine 30 MG Tab.ER PO SCH (17:27)
[2021-01-29] MEDS: Atenolol 25 MG Tab PO SCH (17:27)
[2021-01-29] MEDS: Tamsulosin 0.4 MG Cap.ER PO SCH (17:28)
[2021-01-29] MEDS: Cholecalciferol (Vitamin D3) 25 MCG Tab PO SCH (20:07)
[2021-01-29] MEDS: Rosuvastatin 10 MG Tab PO SCH (20:07)
[2021-01-30] MEDS: Azithromycin 500 MG in Sodium Chloride 0.9% 250 ML IV SCH (08:08)
[2021-01-30] MEDS: Insulin Lispro 100 UNIT/ML 10 ML Vial SUBCUT SCH ×4 (08:14→21:21)
[2021-01-30] MEDS: cefTRIAXone 2 GM in Sodium Chloride 0.9% 100 ML IV SCH (09:23)
[2021-01-30] MEDS: Clopidogrel 75 MG Tab PO SCH (10:23)
[2021-01-30] MEDS: Folic Acid 1 MG Tab PO SCH (10:23)
[2021-01-30] MEDS: Insulin Glarg,Human.Rec.Analog 100 Unit/ML SUBCUT SCH (10:24)
[2021-01-30] MEDS: Rivaroxaban 10 MG Tab PO SCH (10:24)
[2021-01-30] MEDS: Dexamethasone 10 MG/ML SDV IVPUSH SCH (10:24)
[2021-01-30] MEDS: DAPSONE 100 MG PO SCH (10:26)
--- NOTE | 2021-01-30 15:48 | PCM.PN ---
- General Info Date of Service: 01/30/21 Admission Dx/Problem (Free Text): Admission Diagnosis/Problem Admission Diagnosis/Problem Hypoxia Subjective Update: 85-year-old male with giant cell arteritis, diabetes, coronary artery disease, hypertension admitted with COVID-19 pneumonia. Refused all his medications this morning but then allow them later as he became more alert. - Review of Systems General: Reports: No Symptoms HEENT: Reports: No Symptoms Pulmonary: Reports: No Symptoms Cardiovascular: Reports: No Symptoms Gastrointestinal: Reports: No Symptoms - Patient Data Vitals - Most Recent: Last Vital Signs Temp 97.7 F 01/30/21 15:03 Pulse 70 01/30/21 15:03 Resp 24 H 01/30/21 15:03 BP 146/93 H 01/30/21 15:03 Pulse Ox 92 L 01/30/21 15:03 Weight - Most Recent: 225 lb 12.8 oz I&O - Last 24 Hours: Intake & Output 01/30/21 01/30/21 01/30/21 06:59 14:59 22:59 Intake Total 400 520 Output Total 300 Balance 100 520 Lab Results Last 24 Hours: Laboratory Results - last 24 hr 01/29/21 01/29/21 01/29/21 Range/Units 05:11 16:46 20:20 WBC (4.23-9.07) K/mm3 RBC (4.63-6.08) M/mm3 Hgb (13.7-17.5) gm/dl Hct (40.1-51.0) % MCV (79.0-92.2) fl MCH (25.7-32.2) pg MCHC (32.2-35.5) g/dl RDW Std Deviation (35.1-43.9) fL Plt Count (163-337) K/mm3 MPV (9.4-12.3) fl Neut % (Auto) (34.0-67.9) % Lymph % (Auto) (21.8-53.1) % [place] % (Auto) (5.3-12.2) % Eos % (Auto) (0.8-7.0) Baso % (Auto) (0.1-1.2) % Neut # (Auto) (1.78-5.38) K/mm3 Lymph # (Auto) (1.32-3.57) K/mm3 [place] # (Auto) (0.30-0.82) K/mm3 Eos # (Auto) (0.04-0.54) K/mm3 Baso # (Auto) (0.01-0.08) K/mm3 Manual Slide Review Sodium (136-145) mEq/L Potassium (3.5-5.1) mEq/L Chloride (98-107) mEq/L Carbon Dioxide (21-32) mEq/L Anion Gap (5-15) BUN (7-18) mg/dL Creatinine (0.7-1.3) mg/dL Est Cr Clr Drug Dosing mL/min Estimated GFR (MDRD) (>60) mL/min BUN/Creatinine Ratio (14-18) Glucose (70-99) mg/dL POC Glucose 178 H 196 H (70-99) mg/dL Calcium (8.5-10.1) mg/dL Phosphorus (2.6-4.7) mg/dL Magnesium (1.8-2.4) mg/dL Total Bilirubin (0.2-1.0) mg/dL AST (15-37) U/L ALT (16-63) U/L Alkaline Phosphatase (46-116) U/L C-Reactive Protein (<1.0) mg/dL Total Protein (6.4-8.2) g/dl Albumin (3.4-5.0) g/dl Globulin gm/dL Albumin/Globulin Ratio (1-2) Procalcitonin 7.57 H ng/mL 01/30/21 01/30/21 01/30/21 Range/Units 06:21 06:21 07:01 WBC 13.11 H (4.23-9.07) K/mm3 RBC 4.45 L (4.63-6.08) M/mm3 Hgb 13.1 L (13.7-17.5) gm/dl Hct 40.4 (40.1-51.0) % MCV 90.8 (79.0-92.2) fl MCH 29.4 (25.7-32.2) pg MCHC 32.4 (32.2-35.5) g/dl RDW Std Deviation 47.9 H (35.1-43.9) fL Plt Count 88 L (163-337) K/mm3 MPV 10.8 (9.4-12.3) fl Neut % (Auto) 85.4 H (34.0-67.9) % Lymph % (Auto) 8.5 L (21.8-53.1) % [place] % (Auto) 5.6 (5.3-12.2) % Eos % (Auto) 0 L (0.8-7.0) Baso % (Auto) 0.1 (0.1-1.2) % Neut # (Auto) 11.19 H (1.78-5.38) K/mm3 Lymph # (Auto) 1.12 L (1.32-3.57) K/mm3 [place] # (Auto) 0.74 (0.30-0.82) K/mm3 Eos # (Auto) 0.00 L (0.04-0.54) K/mm3 Baso # (Auto) 0.01 (0.01-0.08) K/mm3 Manual Slide Review Abnormal smear Sodium 140 (136-145) mEq/L Potassium 3.6 (3.5-5.1) mEq/L Chloride 106 (98-107) mEq/L Carbon Dioxide 26 (21-32) mEq/L Anion Gap 11.6 (5-15) BUN 38 H (7-18) mg/dL Creatinine 1.5 H (0.7-1.3) mg/dL Est Cr Clr Drug Dosing 33.05 mL/min Estimated GFR (MDRD) 44 (>60) mL/min BUN/Creatinine Ratio 25.3 H (14-18) Glucose 118 H (70-99) mg/dL POC Glucose 114 H (70-99) mg/dL Calcium 8.1 L (8.5-10.1) mg/dL Phosphorus 2.7 (2.6-4.7) mg/dL Magnesium 2.1 (1.8-2.4) mg/dL Total Bilirubin 0.7 (0.2-1.0) mg/dL AST 38 H (15-37) U/L ALT 24 (16-63) U/L Alkaline Phosphatase 63 (46-116) U/L C-Reactive Protein 18.7 H* (<1.0) mg/dL Total Protein 5.9 L (6.4-8.2) g/dl Albumin 2.4 L (3.4-5.0) g/dl Globulin 3.5 gm/dL Albumin/Globulin Ratio 0.7 L (1-2) Procalcitonin ng/mL 01/30/21 Range/Units 11:28 WBC (4.23-9.07) K/mm3 RBC (4.63-6.08) M/mm3 Hgb (13.7-17.5) gm/dl Hct (40.1-51.0) % MCV (79.0-92.2) fl MCH (25.7-32.2) pg MCHC (32.2-35.5) g/dl RDW Std Deviation (35.1-43.9) fL Plt Count (163-337) K/mm3 MPV (9.4-12.3) fl Neut % (Auto) (34.0-67.9) % Lymph % (Auto) (21.8-53.1) % [place] % (Auto) (5.3-12.2) % Eos % (Auto) (0.8-7.0) Baso % (Auto) (0.1-1.2) % Neut # (Auto) (1.78-5.38) K/mm3 Lymph # (Auto) (1.32-3.57) K/mm3 [place] # (Auto) (0.30-0.82) K/mm3 Eos # (Auto) (0.04-0.54) K/mm3 Baso # (Auto) (0.01-0.08) K/mm3 Manual Slide Review Sodium (136-145) mEq/L Potassium (3.5-5.1) mEq/L Chloride (98-107) mEq/L Carbon Dioxide (21-32) mEq/L Anion Gap (5-15) BUN (7-18) mg/dL Creatinine (0.7-1.3) mg/dL Est Cr Clr Drug Dosing mL/min Estimated GFR (MDRD) (>60) mL/min BUN/Creatinine Ratio (14-18) Glucose (70-99) mg/dL POC Glucose 168 H (70-99) mg/dL Calcium (8.5-10.1) mg/dL Phosphorus (2.6-4.7) mg/dL Magnesium (1.8-2.4) mg/dL Total Bilirubin (0.2-1.0) mg/dL AST (15-37) U/L ALT (16-63) U/L Alkaline Phosphatase (46-116) U/L C-Reactive Protein (<1.0) mg/dL Total Protein (6.4-8.2) g/dl Albumin (3.4-5.0) g/dl Globulin gm/dL Albumin/Globulin Ratio (1-2) Procalcitonin ng/mL Med Orders - Current: Current Medications Acetaminophen (Acetaminophen 325 Mg Tab) 650 mg PO Q4H PRN PRN Reason: Pain (Mild 1-3)/fever >101 Last Admin: 01/28/21 22:51 Dose: 650 mg Documented by: Albuterol/Ipratropium (Albuterol/Ipratropium 3.0-0.5 Mg/3 Ml Neb Soln) 3 ml NEB Q4H PRN PRN Reason: Shortness Of Breath/wheezing Last Admin: 01/29/21 16:36 Dose: 3 ml Documented by: Atenolol (Atenolol 25 Mg Tab) 25 mg PO QPM COUNT INCLUDES THE [facility] Last Admin: 01/29/21 17:27 Dose: 25 mg Documented by: Cholecalciferol (Cholecalciferol (Vitamin D3) 25 Mcg Tab) 25 mcg PO BEDTIME COUNT INCLUDES THE [facility] Last Admin: 01/29/21 20:07 Dose: 25 mcg Documented by: Clopidogrel Bisulfate (Clopidogrel 75 Mg Tab) 75 mg PO DAILY COUNT INCLUDES THE [facility] Last Admin: 01/30/21 10:23 Dose: 75 mg Documented by: Dexamethasone (Dexamethasone 10 Mg/Ml Sdv) 6 mg IVPUSH DAILY COUNT INCLUDES THE [facility] Stop: 02/07/21 09:01 Last Admin: 01/30/21 10:24 Dose: 6 mg Documented by: Folic Acid (Folic Acid 1 Mg Tab) 0.5 mg PO DAILY COUNT INCLUDES THE [facility] Last Admin: 01/30/21 10:23 Dose: 0.5 mg Documented by: Ceftriaxone Sodium 2 gm/ (Sodium Chloride) 100 mls @ 200 mls/hr IV Q24H DARIUSZ Stop: 02/02/21 07:59 Last Admin: 01/30/21 09:23 Dose: 200 mls/hr Documented by: Azithromycin 500 mg/ Sodium (Chloride) 250 mls @ 250 mls/hr IV Q24H COUNT INCLUDES THE [facility] Stop: 01/31/21 08:29 Last Admin: 01/30/21 08:08 Dose: 250 mls/hr Documented by: Insulin Glargine (Insulin Glarg,Human.Rec.Analog 100 Unit/Ml) 15 unit SUBCUT DAILY COUNT INCLUDES THE [facility] Last Admin: 01/30/21 10:24 Dose: 15 units Documented by: Insulin Human Lispro (Insulin Lispro 100 Unit/Ml 10 Ml Vial) 0 unit SUBCUT QIDACANDBED COUNT INCLUDES THE [facility]; Protocol Last Admin: 01/30/21 12:41 Dose: 2 units Documented by: Nifedipine (Nifedipine 30 Mg Tab.Er) 30 mg PO QPM COUNT INCLUDES THE [facility] Last Admin: 01/29/21 17:27 Dose: 30 mg Documented by: Nitroglycerin (Nitroglycerin 0.4 Mg Tab.Sl) 0.4 mg SL ASDIRECTED PRN PRN Reason: Chest Pain Dapsone 100 Mg (TabletOwn Med) 100 mg PO DAILY COUNT INCLUDES THE [facility] Last Admin: 01/30/21 10:26 Dose: 100 mg Documented by: Tocilizumab 162 Mg/0 (.9 Ml MlOwn Med) 162 mg SQ [facility] Ondansetron HCl (Ondansetron 4 Mg/2 Ml Sdv) 4 mg IV Q6H PRN PRN Reason: Nausea/Vomiting Rivaroxaban (Rivaroxaban 10 Mg Tab) 10 mg PO DAILY COUNT INCLUDES THE [facility] Last Admin: 01/30/21 10:24 Dose: 10 mg Documented by: Rosuvastatin Calcium (Rosuvastatin 10 Mg Tab) 10 mg PO BEDTIME COUNT INCLUDES THE [facility] Last Admin: 01/29/21 20:07 Dose: 10 mg Documented by: Sodium Chloride (Sodium Chloride 0.9% 10 Ml Syringe) 10 ml FLUSH ASDIRECTED PRN PRN Reason: Keep Vein Open Last Admin: 01/28/21 18:05 Dose: 10 ml Documented by: Tamsulosin HCl (Tamsulosin 0.4 Mg Cap.Er) 0.4 mg PO QPM COUNT INCLUDES THE [facility] Last Admin: 01/29/21 17:28 Dose: 0.4 mg Documented by: Discontinued Medications Acetaminophen (Acetaminophen 325 Mg Tab) 650 mg PO Q4H PRN PRN Reason: Fever Greater Than 101 Dexamethasone (Dexamethasone 10 Mg/Ml Sdv) 6 mg IVPUSH ONETIME ONE Stop: 01/28/21 18:58 Last Admin: 01/28/21 20:05 Dose: 6 mg Documented by: Influenza Virus Vaccine (Pharmacy To Dose - Influenza Vaccine) 1 each IM ONETIME ONE Stop: 01/28/21 23:49 Influenza Virus Vaccine (Flu Vacc Cl9003(65up)/Mf59c/Pf 60 Mcg/0.5 Ml Syringe) 60 mcg IM .ONCE ONE Stop: 01/28/21 23:46 Lorazepam (Lorazepam 2 Mg/Ml Sdv) 1 mg IVPUSH ONETIME ONE Stop: 01/28/21 20:22 Last Admin: 01/28/21 22:00 Dose: Not Given Documented by: - Exam Quality Assessment: Supplemental Oxygen General: Alert, Oriented HEENT: Pupils Equal, Pupils Reactive, EOMI, Mucous Membr. Moist/[place] Neck: Supple Lungs: Normal Respiratory Effort, Crackles Cardiovascular: Regular Rate, Regular Rhythm GI/Abdominal Exam: Normal Bowel Sounds, Soft, Non-Tender, No Distention Extremities: Normal Inspection, Normal Range of Motion, Non-Tender, No Pedal Edema Skin: Warm, Dry, Intact Psy/Mental Status: Alert, Normal Affect, Normal Mood - Patient Data Lab Results Last 24 hrs: Laboratory Results - last 24 hr 01/29/21 01/29/21 01/29/21 Range/Units 05:11 16:46 20:20 WBC (4.23-9.07) K/mm3 RBC (4.63-6.08) M/mm3 Hgb (13.7-17.5) gm/dl Hct (40.1-51.0) % MCV (79.0-92.2) fl MCH (25.7-32.2) pg MCHC (32.2-35.5) g/dl RDW Std Deviation (35.1-43.9) fL Plt Count (163-337) K/mm3 MPV (9.4-12.3) fl Neut % (Auto) (34.0-67.9) % Lymph % (Auto) (21.8-53.1) % [place] % (Auto) (5.3-12.2) % Eos % (Auto) (0.8-7.0) Baso % (Auto) (0.1-1.2) % Neut # (Auto) (1.78-5.38) K/mm3 Lymph # (Auto) (1.32-3.57) K/mm3 [place] # (Auto) (0.30-0.82) K/mm3 Eos # (Auto) (0.04-0.54) K/mm3 Baso # (Auto) (0.01-0.08) K/mm3 Manual Slide Review Sodium (136-145) mEq/L Potassium (3.5-5.1) mEq/L Chloride (98-107) mEq/L Carbon Dioxide (21-32) mEq/L Anion Gap (5-15) BUN (7-18) mg/dL Creatinine (0.7-1.3) mg/dL Est Cr Clr Drug Dosing mL/min Estimated GFR (MDRD) (>60) mL/min BUN/Creatinine Ratio (14-18) Glucose (70-99) mg/dL POC Glucose 178 H 196 H (70-99) mg/dL Calcium (8.5-10.1) mg/dL Phosphorus (2.6-4.7) mg/dL Magnesium (1.8-2.4) mg/dL Total Bilirubin (0.2-1.0) mg/dL AST (15-37) U/L ALT (16-63) U/L Alkaline Phosphatase (46-116) U/L C-Reactive Protein (<1.0) mg/dL Total Protein (6.4-8.2) g/dl Albumin (3.4-5.0) g/dl Globulin gm/dL Albumin/Globulin Ratio (1-2) Procalcitonin 7.57 H ng/mL 01/30/21 01/30/21 01/30/21 Range/Units 06:21 06:21 07:01 WBC 13.11 H (4.23-9.07) K/mm3 RBC 4.45 L (4.63-6.08) M/mm3 Hgb 13.1 L (13.7-17.5) gm/dl Hct 40.4 (40.1-51.0) % MCV 90.8 (79.0-92.2) fl MCH 29.4 (25.7-32.2) pg MCHC 32.4 (32.2-35.5) g/dl RDW Std Deviation 47.9 H (35.1-43.9) fL Plt Count 88 L (163-337) K/mm3 MPV 10.8 (9.4-12.3) fl Neut % (Auto) 85.4 H (34.0-67.9) % Lymph % (Auto) 8.5 L (21.8-53.1) % [place] % (Auto) 5.6 (5.3-12.2) % Eos % (Auto) 0 L (0.8-7.0) Baso % (Auto) 0.1 (0.1-1.2) % Neut # (Auto) 11.19 H (1.78-5.38) K/mm3 Lymph # (Auto) 1.12 L (1.32-3.57) K/mm3 [place] # (Auto) 0.74 (0.30-0.82) K/mm3 Eos # (Auto) 0.00 L (0.04-0.54) K/mm3 Baso # (Auto) 0.01 (0.01-0.08) K/mm3 Manual Slide Review Abnormal smear Sodium 140 (136-145) mEq/L Potassium 3.6 (3.5-5.1) mEq/L Chloride 106 (98-107) mEq/L Carbon Dioxide 26 (21-32) mEq/L Anion Gap 11.6 (5-15) BUN 38 H (7-18) mg/dL Creatinine 1.5 H (0.7-1.3) mg/dL Est Cr Clr Drug Dosing 33.05 mL/min Estimated GFR (MDRD) 44 (>60) mL/min BUN/Creatinine Ratio 25.3 H (14-18) Glucose 118 H (70-99) mg/dL POC Glucose 114 H (70-99) mg/dL Calcium 8.1 L (8.5-10.1) mg/dL Phosphorus 2.7 (2.6-4.7) mg/dL Magnesium 2.1 (1.8-2.4) mg/dL Total Bilirubin 0.7 (0.2-1.0) mg/dL AST 38 H (15-37) U/L ALT 24 (16-63) U/L Alkaline Phosphatase 63 (46-116) U/L C-Reactive Protein 18.7 H* (<1.0) mg/dL Total Protein 5.9 L (6.4-8.2) g/dl Albumin 2.4 L (3.4-5.0) g/dl Globulin 3.5 gm/dL Albumin/Globulin Ratio 0.7 L (1-2) Procalcitonin ng/mL 01/30/21 Range/Units 11:28 WBC (4.23-9.07) K/mm3 RBC (4.63-6.08) M/mm3 Hgb (13.7-17.5) gm/dl Hct (40.1-51.0) % MCV (79.0-92.2) fl MCH (25.7-32.2) pg MCHC (32.2-35.5) g/dl RDW Std Deviation (35.1-43.9) fL Plt Count (163-337) K/mm3 MPV (9.4-12.3) fl Neut % (Auto) (34.0-67.9) % Lymph % (Auto) (21.8-53.1) % [place] % (Auto) (5.3-12.2) % Eos % (Auto) (0.8-7.0) Baso % (Auto) (0.1-1.2) % Neut # (Auto) (1.78-5.38) K/mm3 Lymph # (Auto) (1.32-3.57) K/mm3 [place] # (Auto) (0.30-0.82) K/mm3 Eos # (Auto) (0.04-0.54) K/mm3 Baso # (Auto) (0.01-0.08) K/mm3 Manual Slide Review Sodium (136-145) mEq/L Potassium (3.5-5.1) mEq/L Chloride (98-107) mEq/L Carbon Dioxide (21-32) mEq/L Anion Gap (5-15) BUN (7-18) mg/dL Creatinine (0.7-1.3) mg/dL Est Cr Clr Drug Dosing mL/min Estimated GFR (MDRD) (>60) mL/min BUN/Creatinine Ratio (14-18) Glucose (70-99) mg/dL POC Glucose 168 H (70-99) mg/dL Calcium (8.5-10.1) mg/dL Phosphorus (2.6-4.7) mg/dL Magnesium (1.8-2.4) mg/dL Total Bilirubin (0.2-1.0) mg/dL AST (15-37) U/L ALT (16-63) U/L Alkaline Phosphatase (46-116) U/L C-Reactive Protein (<1.0) mg/dL Total Protein (6.4-8.2) g/dl Albumin (3.4-5.0) g/dl Globulin gm/dL Albumin/Globulin Ratio (1-2) Procalcitonin ng/mL Result Diagrams: 01/30/21 06:21 01/30/21 06:21 Sepsis Event Note - Evaluation Sepsis Screening Result: No Definite Risk - Focused Exam Vital Signs: Vital Signs Temp Pulse Resp BP Pulse Ox Pulse Ox 01/30/21 15:03 97.7 F 70 24 H 146/93 H 92 L 01/30/21 10:20 97.9 F 66 20 127/53 L 92 L 01/30/21 10:00 91 L 01/30/21 08:15 97.5 F 68 20 126/60 93 L - Problem List & Annotations (1) Pneumonia due to COVID-19 virus SNOMED Code(s): 694876177390921535 Code(s): U07.1 - COVID-19; J12.82 - PNEUMONIA DUE TO CORONAVIRUS DISEASE 2019 Status: Acute Current Visit: Yes (2) Giant cell arteritis SNOMED Code(s): 166364762 Code(s): M31.6 - OTHER GIANT CELL ARTERITIS Status: Acute Current Visit: Yes (3) Diabetes mellitus type 2 in obese SNOMED Code(s): 59436458 Code(s): E11.69 - TYPE 2 DIABETES MELLITUS WITH OTHER SPECIFIED COMPLICATION; E66.9 - OBESITY, UNSPECIFIED Status: Acute Current Visit: Yes (4) Hypertension SNOMED Code(s): 62854995 Code(s): I10 - ESSENTIAL (PRIMARY) HYPERTENSION Status: Acute Current Visit: Yes - Problem List Review Problem List Initiated/Reviewed/Updated: Yes - My Orders Last 24 Hours: My Active Orders 01/29/21 18:00 NIFEdipine [Procardia XL] 30 mg PO QPM Tamsulosin [Flomax] 0.4 mg PO QPM atenoloL [Tenormin] 25 mg PO QPM 01/29/21 21:00 Cholecalciferol (Vitamin D3) [Vitamin D3] 25 mcg PO BEDTIME Rosuvastatin [Crestor] 10 mg PO BEDTIME 01/31/21 05:11 C-REACTIVE PROTEIN [CHEM] AM CBC WITH AUTO DIFF [HEME] AM CMP [COMPREHENSIVE METABOLIC PN,CMP] [CHEM] AM MAGNESIUM [CHEM] AM PHOSPHORUS [CHEM] AM 02/01/21 05:11 C-REACTIVE PROTEIN [CHEM] AM CBC WITH AUTO DIFF [HEME] AM CMP [COMPREHENSIVE METABOLIC PN,CMP] [CHEM] AM MAGNESIUM [CHEM] AM PHOSPHORUS [CHEM] AM 02/02/21 05:11 C-REACTIVE PROTEIN [CHEM] AM CBC WITH AUTO DIFF [HEME] AM CMP [COMPREHENSIVE METABOLIC PN,CMP] [CHEM] AM MAGNESIUM [CHEM] AM PHOSPHORUS [CHEM] AM 02/04/21 09:00 Tocilizumab 162 mg SQ FR - Plan Plan:: 85-year-old male with multiple medical problems including immunosuppressant medications, Actemra, admitted with COVID-19 pneumonia COVID-19 pneumonia with hypoxia * Patient received Regeneron on the day of admission * Received full course of Pfizer vaccine and booster this week * Initial oxygen saturations were in the mid 80s * Currently on 3 L/min nasal cannula * Received dexamethasone in the emergency department * Chest x-ray consistent with pneumonia, possibly Covid in etiology * White count decreased to 13. CRP increased to 20. 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 Follow D- dimer every other day * Continue ceftriaxone and azithromycin for a 5 and 3-day course respectively * VTE prophylaxis with Xarelto. Lovenox/heparin is contraindicated secondary to the thrombocytopenia and patients with COVID-19 or very high incidence of VTE. * CODE STATUS: Full code
[2021-01-30] MEDS: NIFEdipine 30 MG Tab.ER PO SCH (17:53)
[2021-01-30] MEDS: Tamsulosin 0.4 MG Cap.ER PO SCH (17:54)
[2021-01-30] MEDS: Atenolol 25 MG Tab PO SCH (17:54)
[2021-01-30] MEDS: Rosuvastatin 10 MG Tab PO SCH (21:21)
[2021-01-30] MEDS: Cholecalciferol (Vitamin D3) 25 MCG Tab PO SCH (21:21)
[2021-01-31 03:46] VITALS: BP 134/67
[2021-01-31 07:45] VITALS: PULSE 66
--- NOTE | 2021-01-31 07:51 | PCM.DCSUM1 ---
Discharge Summary - Hospital Course Free Text/Narrative:: 85 yom with dianosis of covid pna who at 4 am called to leave AMA. He ws asked to stay until morning and speak to doctor and he did stay but this am before seen was demanding to leave and left and refused to sign AMa. HPI Initial Comments: 85yom with covid saturating at 96% overnight and 90's this am who stated he does not like being in hospital and doesnt believe he has covid was admitted. 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 Diagnosis: Stroke: No - Discharge Data Discharge Date: 01/31/21 (AMA) Discharge Disposition: Home, Self-Care 01 Condition: Stable - Referral to Home Health Primary Care Physician: Keyla Navarro MD - Patient Summary/Data Consults: Consultations 01/28/21 21:19 PT Evaluation and Treatment [CONS] Routine - Discharge Plan Home Medications: Home Meds Clopidogrel [Plavix] 75 mg PO DAILY 04/28/15 [History] Fish Oil/Sharon-3 Fatty Acids [Fish Oil 1,000 MG] 1,000 mg PO BID 04/28/15 [History] Folic Acid 400 mcg PO DAILY 04/28/15 [History] Hydrochlorothiazide 25 mg PO DAILY 04/28/15 [History] Insulin Aspart [NovoLOG] 8 units SQ BID 04/28/15 [History] Insulin Glarg,Human.Rec.Analog [Lantus] 16 units SQ QAM 04/28/15 [History] Multivit-Min/FA/Lycopen/Lutein [Centrum Silver Tablet] 1 tab PO DAILY 04/28/15 [History] NIFEdipine [Nifedipine] 30 mg PO QPM 04/28/15 [History] Nitroglycerin [Nitrostat] 0.4 mg SL ASDIRECTED PRN 04/28/15 [History] Tamsulosin [Flomax] 0.4 mg PO QPM 04/02/17 [History] atenoloL [Tenormin] 25 mg PO QPM 04/02/17 [History] Budesonide/Formoterol [Symbicort 160-4.5 MCG] 2 puff INH BID 07/19/18 [History] Calcium Carbonate/Vitamin D3 [Caltrate-600 with Vit D Tab] 1 tab PO BID 07/19/18 [History] Losartan [Cozaar] 25 mg PO DAILY 07/19/18 [History] Selenium Sulfide/Aloe Vera [Selsun Blue Moist 1% Shampoo] 1 applic TP ASDIRECTED PRN 07/19/18 [History] Tocilizumab [Actemra] 162 mg SQ FR 07/19/18 [History] atorvaSTATin Calcium [Atorvastatin Calcium] 40 mg PO BEDTIME 07/19/18 [History] metFORMIN [Glucophage] 500 mg PO BEDTIME 07/19/18 [History] Cholecalciferol (Vitamin D3) [Vitamin D3] 25 mcg PO BEDTIME 01/29/21 [History] Dapsone 100 mg PO DAILY 01/29/21 [History] Forms: ED Department Discharge Referrals: Keyla Navarro MD [Primary Care Provider] - - Discharge Summary/Plan Comment DC Time >30 min.: No (AMA) Total # of Minutes for Discharge Time: 20 - General Info Date of Service: 01/31/21 Admission Dx/Problem (Free Text: Admission Diagnosis/Problem Admission Diagnosis/Problem Hypoxia Subjective Update: 85-year-old male with giant cell arteritis, diabetes, coronary artery disease, hypertension admitted with COVID-19 pneumonia. Refused all his medications this morning but then allow them later as he became more alert. - Review of Systems General: Reports: No Symptoms HEENT: Reports: No Symptoms Pulmonary: Reports: No Symptoms Cardiovascular: Reports: No Symptoms Gastrointestinal: Reports: No Symptoms Genitourinary: Reports: No Symptoms Musculoskeletal: Reports: No Symptoms Skin: Reports: No Symptoms Neurological: Reports: No Symptoms Psychiatric: Reports: No Symptoms (unable to assess due to leaving AMA) - Patient Data Vitals - Most Recent: Last Vital Signs Temp 97.9 F 01/31/21 03:35 Pulse 66 01/31/21 07:25 Resp 18 01/31/21 03:35 BP 134/67 01/31/21 03:35 Pulse Ox 93 L 01/31/21 07:25 Weight - Most Recent: 223 lb 6.4 oz I&O - Last 24 hours: Intake & Output 01/30/21 01/31/21 01/31/21 22:59 06:59 14:59 Intake Total 1200 Output Total 800 Balance 400 Lab Results - Last 24 hrs: Laboratory Results - last 24 hr 01/29/21 01/30/21 01/30/21 Range/Units 05:11 06:21 06:21 WBC (4.23-9.07) K/mm3 RBC (4.63-6.08) M/mm3 Hgb (13.7-17.5) gm/dl Hct (40.1-51.0) % MCV (79.0-92.2) fl MCH (25.7-32.2) pg MCHC (32.2-35.5) g/dl RDW Std Deviation (35.1-43.9) fL Plt Count (163-337) K/mm3 MPV (9.4-12.3) fl Neut % (Auto) (34.0-67.9) % Lymph % (Auto) (21.8-53.1) % [place] % (Auto) (5.3-12.2) % Eos % (Auto) (0.8-7.0) Baso % (Auto) (0.1-1.2) % Neut # (Auto) (1.78-5.38) K/mm3 Lymph # (Auto) (1.32-3.57) K/mm3 [place] # (Auto) (0.30-0.82) K/mm3 Eos # (Auto) (0.04-0.54) K/mm3 Baso # (Auto) (0.01-0.08) K/mm3 Manual Slide Review Abnormal smear Sodium 140 (136-145) mEq/L Potassium 3.6 (3.5-5.1) mEq/L Chloride 106 (98-107) mEq/L Carbon Dioxide 26 (21-32) mEq/L Anion Gap 11.6 (5-15) BUN 38 H (7-18) mg/dL Creatinine 1.5 H (0.7-1.3) mg/dL Est Cr Clr Drug Dosing 33.05 mL/min Estimated GFR (MDRD) 44 (>60) mL/min BUN/Creatinine Ratio 25.3 H (14-18) Glucose 118 H (70-99) mg/dL POC Glucose (70-99) mg/dL Calcium 8.1 L (8.5-10.1) mg/dL Phosphorus 2.7 (2.6-4.7) mg/dL Magnesium 2.1 (1.8-2.4) mg/dL Total Bilirubin 0.7 (0.2-1.0) mg/dL AST 38 H (15-37) U/L ALT 24 (16-63) U/L Alkaline Phosphatase 63 (46-116) U/L C-Reactive Protein 18.7 H* (<1.0) mg/dL Total Protein 5.9 L (6.4-8.2) g/dl Albumin 2.4 L (3.4-5.0) g/dl Globulin 3.5 gm/dL Albumin/Globulin Ratio 0.7 L (1-2) Procalcitonin 7.57 H ng/mL 01/30/21 01/30/21 01/30/21 Range/Units 11:28 17:13 20:45 WBC (4.23-9.07) K/mm3 RBC (4.63-6.08) M/mm3 Hgb (13.7-17.5) gm/dl Hct (40.1-51.0) % MCV (79.0-92.2) fl MCH (25.7-32.2) pg MCHC (32.2-35.5) g/dl RDW Std Deviation (35.1-43.9) fL Plt Count (163-337) K/mm3 MPV (9.4-12.3) fl Neut % (Auto) (34.0-67.9) % Lymph % (Auto) (21.8-53.1) % [place] % (Auto) (5.3-12.2) % Eos % (Auto) (0.8-7.0) Baso % (Auto) (0.1-1.2) % Neut # (Auto) (1.78-5.38) K/mm3 Lymph # (Auto) (1.32-3.57) K/mm3 [place] # (Auto) (0.30-0.82) K/mm3 Eos # (Auto) (0.04-0.54) K/mm3 Baso # (Auto) (0.01-0.08) K/mm3 Manual Slide Review Sodium (136-145) mEq/L Potassium (3.5-5.1) mEq/L Chloride (98-107) mEq/L Carbon Dioxide (21-32) mEq/L Anion Gap (5-15) BUN (7-18) mg/dL Creatinine (0.7-1.3) mg/dL Est Cr Clr Drug Dosing mL/min Estimated GFR (MDRD) (>60) mL/min BUN/Creatinine Ratio (14-18) Glucose (70-99) mg/dL POC Glucose 168 H 233 H 267 H (70-99) mg/dL Calcium (8.5-10.1) mg/dL Phosphorus (2.6-4.7) mg/dL Magnesium (1.8-2.4) mg/dL Total Bilirubin (0.2-1.0) mg/dL AST (15-37) U/L ALT (16-63) U/L Alkaline Phosphatase (46-116) U/L C-Reactive Protein (<1.0) mg/dL Total Protein (6.4-8.2) g/dl Albumin (3.4-5.0) g/dl Globulin gm/dL Albumin/Globulin Ratio (1-2) Procalcitonin ng/mL 01/31/21 01/31/21 01/31/21 Range/Units 06:03 06:03 06:34 WBC 11.03 H (4.23-9.07) K/mm3 RBC 4.77 (4.63-6.08) M/mm3 Hgb 13.7 (13.7-17.5) gm/dl Hct 42.7 (40.1-51.0) % MCV 89.5 (79.0-92.2) fl MCH 28.7 (25.7-32.2) pg MCHC 32.1 L (32.2-35.5) g/dl RDW Std Deviation 47.5 H (35.1-43.9) fL Plt Count 109 L (163-337) K/mm3 MPV 10.6 (9.4-12.3) fl Neut % (Auto) 86.6 H (34.0-67.9) % Lymph % (Auto) 6.3 L (21.8-53.1) % [place] % (Auto) 6.0 (5.3-12.2) % Eos % (Auto) 0 L (0.8-7.0) Baso % (Auto) 0.1 (0.1-1.2) % Neut # (Auto) 9.56 H (1.78-5.38) K/mm3 Lymph # (Auto) 0.69 L (1.32-3.57) K/mm3 [place] # (Auto) 0.66 (0.30-0.82) K/mm3 Eos # (Auto) 0.00 L (0.04-0.54) K/mm3 Baso # (Auto) 0.01 (0.01-0.08) K/mm3 Manual Slide Review Sodium 140 (136-145) mEq/L Potassium 3.9 (3.5-5.1) mEq/L Chloride 107 (98-107) mEq/L Carbon Dioxide 24 (21-32) mEq/L Anion Gap 12.9 (5-15) BUN 41 H (7-18) mg/dL Creatinine 1.6 H (0.7-1.3) mg/dL Est Cr Clr Drug Dosing 30.98 mL/min Estimated GFR (MDRD) 41 (>60) mL/min BUN/Creatinine Ratio 25.6 H (14-18) Glucose 159 H (70-99) mg/dL POC Glucose 141 H (70-99) mg/dL Calcium 8.0 L (8.5-10.1) mg/dL Phosphorus 3.3 (2.6-4.7) mg/dL Magnesium 2.3 (1.8-2.4) mg/dL Total Bilirubin 0.9 (0.2-1.0) mg/dL AST 50 H (15-37) U/L ALT 46 (16-63) U/L Alkaline Phosphatase 78 (46-116) U/L C-Reactive Protein 8.2 H* (<1.0) mg/dL Total Protein 6.5 (6.4-8.2) g/dl Albumin 2.8 L (3.4-5.0) g/dl Globulin 3.7 gm/dL Albumin/Globulin Ratio 0.8 L (1-2) Procalcitonin ng/mL Med Orders - Current: Current Medications Acetaminophen (Acetaminophen 325 Mg Tab) 650 mg PO Q4H PRN PRN Reason: Pain (Mild 1-3)/fever >101 Last Admin: 01/28/21 22:51 Dose: 650 mg Documented by: Albuterol/Ipratropium (Albuterol/Ipratropium 3.0-0.5 Mg/3 Ml Neb Soln) 3 ml NEB Q4H PRN PRN Reason: Shortness Of Breath/wheezing Last Admin: 01/29/21 16:36 Dose: 3 ml Documented by: Atenolol (Atenolol 25 Mg Tab) 25 mg PO QPM [facility] Last Admin: 01/30/21 17:54 Dose: 25 mg Documented by: Cholecalciferol (Cholecalciferol (Vitamin D3) 25 Mcg Tab) 25 mcg PO BEDTIME [facility] Last Admin: 01/30/21 21:21 Dose: 25 mcg Documented by: Clopidogrel Bisulfate (Clopidogrel 75 Mg Tab) 75 mg PO DAILY [facility] Last Admin: 01/30/21 10:23 Dose: 75 mg Documented by: Dexamethasone (Dexamethasone 10 Mg/Ml Sdv) 6 mg IVPUSH DAILY [facility] Stop: 02/07/21 09:01 Last Admin: 01/30/21 10:24 Dose: 6 mg Documented by: Folic Acid (Folic Acid 1 Mg Tab) 0.5 mg PO DAILY [facility] Last Admin: 01/30/21 10:23 Dose: 0.5 mg Documented by: Ceftriaxone Sodium 2 gm/ (Sodium Chloride) 100 mls @ 200 mls/hr IV Q24H [facility] Stop: 02/02/21 07:59 Last Admin: 01/30/21 09:23 Dose: 200 mls/hr Documented by: Azithromycin 500 mg/ Sodium (Chloride) 250 mls @ 250 mls/hr IV Q24H [facility] Stop: 01/31/21 08:29 Last Admin: 01/30/21 08:08 Dose: 250 mls/hr Documented by: Insulin Glargine (Insulin Glarg,Human.Rec.Analog 100 Unit/Ml) 15 unit SUBCUT DAILY [facility] Last Admin: 01/30/21 10:24 Dose: 15 units Documented by: Insulin Human Lispro (Insulin Lispro 100 Unit/Ml 10 Ml Vial) 0 unit SUBCUT QIDACANDBED [facility]; Protocol Last Admin: 01/30/21 21:21 Dose: 6 units Documented by: Nifedipine (Nifedipine 30 Mg Tab.Er) 30 mg PO QPM [facility] Last Admin: 01/30/21 17:53 Dose: 30 mg Documented by: Nitroglycerin (Nitroglycerin 0.4 Mg Tab.Sl) 0.4 mg SL ASDIRECTED PRN PRN Reason: Chest Pain Dapsone 100 Mg (TabletOwn Med) 100 mg PO DAILY [facility] Last Admin: 01/30/21 10:26 Dose: 100 mg Documented by: Tocilizumab 162 Mg/0 (.9 Ml MlOwn Med) 162 mg SQ FR [facility] Ondansetron HCl (Ondansetron 4 Mg/2 Ml Sdv) 4 mg IV Q6H PRN PRN Reason: Nausea/Vomiting Rivaroxaban (Rivaroxaban 10 Mg Tab) 10 mg PO DAILY [facility] Last Admin: 01/30/21 10:24 Dose: 10 mg Documented by: Rosuvastatin Calcium (Rosuvastatin 10 Mg Tab) 10 mg PO BEDTIME [facility] Last Admin: 01/30/21 21:21 Dose: 10 mg Documented by: Sodium Chloride (Sodium Chloride 0.9% 10 Ml Syringe) 10 ml FLUSH ASDIRECTED PRN PRN Reason: Keep Vein Open Last Admin: 01/28/21 18:05 Dose: 10 ml Documented by: Tamsulosin HCl (Tamsulosin 0.4 Mg Cap.Er) 0.4 mg PO QPM [facility] Last Admin: 01/30/21 17:54 Dose: 0.4 mg Documented by: Discontinued Medications Acetaminophen (Acetaminophen 325 Mg Tab) 650 mg PO Q4H PRN PRN Reason: Fever Greater Than 101 Dexamethasone (Dexamethasone 10 Mg/Ml Sdv) 6 mg IVPUSH ONETIME ONE Stop: 01/28/21 18:58 Last Admin: 01/28/21 20:05 Dose: 6 mg Documented by: Influenza Virus Vaccine (Pharmacy To Dose - Influenza Vaccine) 1 each IM ONETIME ONE Stop: 01/28/21 23:49 Influenza Virus Vaccine (Flu Vacc Pc6397(65up)/Mf59c/Pf 60 Mcg/0.5 Ml Syringe) 60 mcg IM .ONCE ONE Stop: 01/28/21 23:46 Lorazepam (Lorazepam 2 Mg/Ml Sdv) 1 mg IVPUSH ONETIME ONE Stop: 01/28/21 20:22 Last Admin: 01/28/21 22:00 Dose: Not Given Documented by: - Exam General: Reports: Alert Physical Findings Comments:: Unable to assess patient, left before seen AMA
[2021-02-04] MEDS ORDERED: TOCILIZUMAB 162 MG/0.9 ML SQ SCH (09:00)
== END 2021-01-31 07:43 | disposition left against medical advice (07) | DRG 177 ==
LOC: JD.ED 16:51 → JD.MS 21:11
PROVIDERS: ADMIT Family Medicine; ATTEND Family Medicine
PROC: 8E0ZXY6 Isolation (ICD-10-PCS; principal; 2021-01-28)
PROC: XW033E5 Introduction of Remdesivir Anti-infective into Peripheral Vein, Percutaneous Approach, New Technology Group 5 (ICD-10-PCS; 2021-01-28)
PROC: 3E0333Z Introduction of Anti-inflammatory into Peripheral Vein, Percutaneous Approach (ICD-10-PCS; 2021-01-28)
DX: U07.1 COVID-19 (principal); R09.02 Hypoxemia; H54.7 Unspecified visual loss; J12.82 Pneumonia due to coronavirus disease 2019; E78.00 Pure hypercholesterolemia, unspecified; M31.6 Other giant cell arteritis; E11.69 Type 2 diabetes mellitus with other specified complication; J45.909 Unspecified asthma, uncomplicated; I10 Essential (primary) hypertension; E11.9 Type 2 diabetes mellitus without complications; D64.9 Anemia, unspecified; Z88.8 Allergy status to other drugs, medicaments and biological substances; Z79.02 Long term (current) use of antithrombotics/antiplatelets; Z79.82 Long term (current) use of aspirin; N28.9 Disorder of kidney and ureter, unspecified; Z79.899 Other long term (current) drug therapy; D69.6 Thrombocytopenia, unspecified; I25.10 Atherosclerotic heart disease of native coronary artery without angina pectoris; N40.0 Benign prostatic hyperplasia without lower urinary tract symptoms; D52.9 Folate deficiency anemia, unspecified; E66.9 Obesity, unspecified; Z68.35 Body mass index [BMI] 35.0-35.9, adult; I25.2 Old myocardial infarction; Z95.5 Presence of coronary angioplasty implant and graft; Z89.011 Acquired absence of right thumb; Z79.4 Long term (current) use of insulin; Z89.021 Acquired absence of right finger(s); Z98.42 Cataract extraction status, left eye; Z98.41 Cataract extraction status, right eye; Z98.890 Other specified postprocedural states
CPT/HCPCS: 36415; 71045; 80053; 85025; 85379; 86140; 96374; 99285; J1100; 82947; 83036; 83735; 84100; 84145; 87040; 94640; 94762; A9270-GY; J0456; J0696; J1815-GY; J7050; J7620-GY

== ENCOUNTER 2022-02-04 15:01 | Emergency (ER) | payer MEDICARE, OTHER | END 2022-02-04 18:00 | disposition left against medical advice (07) | LOC: JD.ED 15:01 | DX: Z53.21 Procedure and treatment not carried out due to patient leaving prior to being seen by health care provider (principal) ==

== ENCOUNTER 2024-03-02 14:11 | Emergency (ER) | payer MEDICARE, OTHER ==
[2024-03-02 14:42] VITALS: BP 149/63; PULSE 67
[2024-03-02 16:41] LABS: BASOPHILS ABSOLUTE AUTO 0.1 K/mm3 (0.0-0.2); BASOPHILS PERCENT AUTO 0.5 % (0.0-1.0); EOSINOPHILS ABSOLUTE AUTO 0.4 K/mm3 (0.0-0.4); EOSINOPHILS PERCENT AUTO 2.5 % (0.0-6.0); HEMATOCRIT 47.9 % (42.0-52.0); HEMOGLOBIN 15.4 gm/dl (14.0-18.0); IMMATURE GRAN ABSOLUTE AUTO 0.45 K/mm3 (0.00-0.05); IMMATURE GRAN PERCENT AUTO 2.9 % (0.0-0.4); LYMPHOCYTES PERCENT AUTO 6.6 % (24.0-44.0); MEAN CORPUSCULAR HEMOGLOBIN 23.8 pg (28.0-32.0); MEAN CORPUSCULAR HGB CONC 32.2 g/dl (32.0-36.0); MEAN CORPUSCULAR VOLUME 74.1 fl (83.0-99.0); MEAN PLATELET VOLUME 10.1 fl (9.4-12.4); MONOCYTES ABSOLUTE AUTO 0.7 K/mm3 (0.0-0.8); MONOCYTES PERCENT AUTO 4.2 % (0.0-8.0); NEUTROPHILS ABSOLUTE AUTO 12.9 K/mm3 (1.8-7.7); NEUTROPHILS PERCENT AUTO 83.3 % (41.0-71.0); PLATELET COUNT,PLT 93 K/mm3 (150-400); RED BLOOD CELL COUNT 6.46 M/mm3 (4.52-5.90)
[2024-03-02 17:04] LABS: A/G RATIO 0.6 (1-2); ALBUMIN 2.4 g/dl (3.4-5.0); ANION GAP 9.9 (5-15); BILIRUBIN TOTAL 1.3 mg/dL (0.2-1.0); C-REACTIVE PROTEIN 3.04 mg/dL (<0.30); CALCIUM 9.4 mg/dL (8.5-10.1); CREATININE 2.1 mg/dL (0.7-1.3); EST CRCL DRUG DOSING (CG) 22.3 mL/min; POTASSIUM,K 3.9 mEq/L (3.5-5.1); PROTEIN TOTAL,TP 6.5 g/dl (6.4-8.2)
[2024-03-02] MEDS ORDERED: Sodium Chloride 0.9% 10 ML SDV IV PRN (17:20)
[2024-03-02] MEDS: Ondansetron 4 MG/2 ML SDV IVPUSH ONE (17:34)
[2024-03-02] MEDS: Sodium Chloride 0.9% 10 ML Syringe FLUSH PRN (17:34)
[2024-03-02] MEDS: Ondansetron 4 MG Tab.DIS PO ONE (17:38)
[2024-03-02] MEDS: Amoxicillin/Clavulanate K 875-125 MG Tab PO ONE (19:15)
== END 2024-03-02 19:20 | disposition home or self-care (01) ==
LOC: JD.ED 14:11
DX: R10.84 Generalized abdominal pain (principal); I25.10 Atherosclerotic heart disease of native coronary artery without angina pectoris; E78.00 Pure hypercholesterolemia, unspecified; I10 Essential (primary) hypertension; I25.2 Old myocardial infarction; Z95.5 Presence of coronary angioplasty implant and graft; E11.9 Type 2 diabetes mellitus without complications; E66.9 Obesity, unspecified; Z68.30 Body mass index [BMI] 30.0-30.9, adult; Z86.16 Personal history of COVID-19; Z79.4 Long term (current) use of insulin; Z79.899 Other long term (current) drug therapy; Z79.84 Long term (current) use of oral hypoglycemic drugs; Z88.8 Allergy status to other drugs, medicaments and biological substances; Z91.048 Other nonmedicinal substance allergy status
CPT/HCPCS: 36415; 74176; 80053; 83690; 85025; 86140; 96374; 99284; A9270; J2405; J3490

== ENCOUNTER 2024-03-25 13:16 | Emergency (ER) | payer MEDICARE, OTHER ==
[2024-03-25 14:32] LABS: BASOPHILS ABSOLUTE AUTO 0.1 K/mm3 (0.0-0.2); BASOPHILS PERCENT AUTO 0.5 % (0.0-1.0); EOSINOPHILS ABSOLUTE AUTO 0.3 K/mm3 (0.0-0.4); EOSINOPHILS PERCENT AUTO 2.6 % (0.0-6.0); HEMATOCRIT 45.9 % (42.0-52.0); HEMOGLOBIN 15.3 gm/dl (14.0-18.0); IMMATURE GRAN ABSOLUTE AUTO 0.11 K/mm3 (0.00-0.05); LYMPHOCYTES ABSOLUTE AUTO 1.6 K/mm3 (1.0-4.8); LYMPHOCYTES PERCENT AUTO 14.3 % (24.0-44.0); MEAN CORPUSCULAR HEMOGLOBIN 25.2 pg (28.0-32.0); MEAN CORPUSCULAR HGB CONC 33.3 g/dl (32.0-36.0); MEAN CORPUSCULAR VOLUME 75.7 fl (83.0-99.0); MEAN PLATELET VOLUME 9.7 fl (9.4-12.4); MONOCYTES ABSOLUTE AUTO 0.5 K/mm3 (0.0-0.8); MONOCYTES PERCENT AUTO 4.9 % (0.0-8.0); NEUTROPHILS ABSOLUTE AUTO 8.4 K/mm3 (1.8-7.7); NEUTROPHILS PERCENT AUTO 76.7 % (41.0-71.0); PLATELET COUNT,PLT 97 K/mm3 (150-400); RED BLOOD CELL COUNT 6.06 M/mm3 (4.52-5.90); WHITE BLOOD CELL COUNT,WBC 10.94 K/mm3 (3.9-11.3)
[2024-03-25 15:01] LABS: A/G RATIO 0.7 (1-2); ALBUMIN 2.6 g/dl (3.4-5.0); ANION GAP 11.9 (5-15); BILIRUBIN TOTAL 0.7 mg/dL (0.2-1.0); BUN/CREATININE RATIO 18.5 (14-18); CALCIUM 8.5 mg/dL (8.5-10.1); EST CRCL DRUG DOSING (CG) 23.41 mL/min; POTASSIUM,K 3.9 mEq/L (3.5-5.1); PROTEIN TOTAL,TP 6.2 g/dl (6.4-8.2)
[2024-03-25 15:14] LABS: SLIDE REVIEW ABNORMAL SMEAR
[2024-03-25 15:30] VITALS: BP 120/70; PULSE 48
== END 2024-03-25 16:02 | disposition home or self-care (01) ==
LOC: JD.ED 13:16
DX: R07.89 Other chest pain (principal); I25.10 Atherosclerotic heart disease of native coronary artery without angina pectoris; I25.2 Old myocardial infarction; I10 Essential (primary) hypertension; E78.00 Pure hypercholesterolemia, unspecified; J45.909 Unspecified asthma, uncomplicated; E11.9 Type 2 diabetes mellitus without complications; E66.9 Obesity, unspecified; Z86.16 Personal history of COVID-19; Z95.5 Presence of coronary angioplasty implant and graft; Z88.8 Allergy status to other drugs, medicaments and biological substances; Z91.048 Other nonmedicinal substance allergy status; Z79.4 Long term (current) use of insulin; Z79.84 Long term (current) use of oral hypoglycemic drugs; Z79.899 Other long term (current) drug therapy; Z68.31 Body mass index [BMI] 31.0-31.9, adult
CPT/HCPCS: 36415; 71045; 71045-26; 80053; 83880; 84484; 85025; 93005; 99285